=== PATIENT | female | born 1975 | race Caucasian/White ===

== ENCOUNTER 2018-04-09 01:19 | Emergency (ER) | payer OTHER, SELFPAY ==
[2018-04-09 01:23] VITALS: BP 139/96; PULSE 116; RESP 18; TEMP 36.8; O2SAT 97
--- NOTE | 2018-04-09 01:56 | W.ED.GENAD ---
Discharge Plan Disposition Patient Disposition: HOME Condition: Good Discharge Details Chief Complaint: DentalOral Clinical Impression: Dental infection Primary Care Provider: Villa Saavedra ED Provider: Robert Crouch Meds and New Rx's Prescriptions: New amoxicillin 500 mg Capsule 500 mg PO TID Qty: 20 RF: 0 Continue aspirin 81 MG tablet,delayed release (DR/EC) 81 mg PO DAILY Qty: 30 RF: 0 nitroglycerin [Nitrostat] 0.4 MG tablet, sublingual 0.4 mg Sublingual Q5 MIN PRN X3 PRNQty: 25 RF: 0 lisinopril [Prinivil] 10 MG tablet 10 mg PO DAILY Qty: 30 RF: 0 omeprazole magnesium [Prilosec OTC] 20 MG tablet,delayed release (DR/EC) 20 mg PO DAILY@0730 Qty: 30 RF: 0 quetiapine [Seroquel] 100 MG tablet 100 mg PO DAILY RF: 0 diazepam [Valium] 5 MG tablet 5 mg PO QID PRN (Reason: Muscle Spasm) Qty: 9 RF: 0 ibuprofen 600 MG tablet 600 mg PO QID PRN (Reason: Pain) Qty: 20 RF: 0 Discharge Instructions Instructions: Amoxicillin (By mouth), Dental Abscess (ED) Additional Instructions: Use ibuprofen or acetaminophen for pain. Take antibiotic as directed. You should follow-up with a dentist, please see referral sheet. Return to ED for fever, worsening pain swelling, difficulty breathing, inability to swallow. Medical Decision Making Patient with probable dental infection given the severity of her dental decay. There is no obvious abscess for drainage. She will be started on antibiotic and referred to dentist although she states she has no money to afford a dentist. She has ibuprofen at home to use for pain. Return to ED for fever, increasing pain swelling despite antibiotics, difficulty breathing, inability to swallow. HPI General Mode of arrival: ambulatory. Date/Time Provider Initiated Documentation: 04/09/18 01:48. Limitations to Documentation: no limitations. Information obtained by: patient. HPI Narrative: Patient presents with right lower jaw swelling and pain. Patient has very poor dentition and is prone to dental infections. Started to have increasing pain about 24 hours ago. Tonight started to notice swelling. Came in to get antibiotics. She denies having any fever. She denies difficulty breathing. She has no trouble swallowing. Related Data Home Medications Medication Instructions Recorded Confirmed quetiapine [Seroquel] 100 mg PO DAILY 07/31/16 04/09/18 aspirin 81 mg PO DAILY #30 tabec 04/28/17 04/09/18 lisinopril [Prinivil] 10 mg PO DAILY #30 tablet 04/28/17 04/09/18 nitroglycerin [Nitrostat] 0.4 mg SUBLINGUAL Q5 MIN PRN X3 04/28/17 04/09/18 PRN #25 tab omeprazole magnesium [Prilosec OTC] 20 mg PO DAILY@0730 #30 tabcr 04/28/17 04/09/18 diazepam [Valium] 5 mg PO QID PRN #9 tablet 01/12/18 04/09/18 ibuprofen 600 mg PO QID PRN #20 tablet 01/12/18 04/09/18 amoxicillin 500 mg PO TID #20 cap 04/09/18 Previous Rx's Medication Instructions Recorded aspirin 81 mg PO DAILY #30 tabec 04/28/17 lisinopril [Prinivil] 10 mg PO DAILY #30 tablet 04/28/17 nitroglycerin [Nitrostat] 0.4 mg SUBLINGUAL Q5 MIN PRN X3 04/28/17 PRN #25 tab omeprazole magnesium [Prilosec OTC] 20 mg PO DAILY@0730 #30 tabcr 04/28/17 diazepam [Valium] 5 mg PO QID PRN #9 tablet 01/12/18 ibuprofen 600 mg PO QID PRN #20 tablet 01/12/18 amoxicillin 500 mg PO TID #20 cap 04/09/18 Allergies Allergy/AdvReac Type Severity Reaction Status Date / Time amitriptyline [From Elavil] AdvReac Mild Unverified 04/09/18 01:23 tramadol AdvReac Mild Nausea Unverified 04/09/18 01:23 buspirone [From BuSpar] AdvReac Unverified 04/09/18 01:23 General Stated Complaint: DentalOral GERBER: 5 Review of Systems Constitutional Denies chills and Denies fever(s) ENT Reports dental pain, Denies neck mass, Denies neck pain, Denies sore throat and Denies throat swelling Cardiovascular Denies dyspnea Respiratory Denies dyspnea Musculoskeletal Denies neck pain Allergic/Immunologic Denies throat swelling [facility] Medical History HTN (hypertension) (Chronic) Hypercholesterolemia (Chronic) Social History Smoking/Tobacco Use Status: Current every day Surgical History Tubal ligation status (Inactive) Exam Const General: cooperative and no acute distress Orientation: alert and oriented x3 HENMT Head: normocephalic and atraumatic Face and sinus: no erythema, tenderness (along the right mandible area) and other (swelling along the right mandible area) Mouth: lip normal and tongue normal Teeth and gingiva: poor dentition and other (no gum/gingival abscess to drain; very poor dentition with multiple decayed/fracture teeth) Neck Neck: normal visual inspection, full ROM, no lymphadenopathy, trachea midline, supple and no anterior neck swelling Course Vital Signs Temperature 98.2 F 04/09/18 01:23 Pulse 116 H 04/09/18 01:23 Respiratory Rate 18 04/09/18 01:23 Blood Pressure 139/96 H 04/09/18 01:23 Pulse Oximetry 97 04/09/18 01:23 Temperature 98.2 F 04/09/18 01:23 Temperature Source Temporal Artery Scan 04/09/18 01:23 Pulse 116 H 04/09/18 01:23 Respiratory Rate 18 04/09/18 01:23 Respiratory Effort 04/09/18 01:23 Blood Pressure 139/96 H 04/09/18 01:23 Blood Pressure Position Sitting 04/09/18 01:23 Pulse Oximetry 97 04/09/18 01:23 Oxygen Delivery Method Room Air 04/09/18 01:23 Oxygen Flow Rate 0 04/09/18 01:23 Pain Level 6 04/09/18 01:23
[2018-04-09 02:04] VITALS: BP 139/96; PULSE 116; RESP 18; TEMP 36.8; O2SAT 97
[2018-04-09] MEDS: Amoxicillin 500 MG CAP PO (02:04)
--- NOTE | 2018-04-09 02:06 | ED.GENADUL_ITS ---
Discharge Plan Disposition Patient Disposition: HOME Condition: Good Discharge Details Chief Complaint: DentalOral Clinical Impression: Dental infection Primary Care Provider: [facility] Saavedra ED Provider: Robert Crouch Meds and New Rx's Prescriptions: New amoxicillin 500 mg Capsule 500 mg PO TID Qty: 20 RF: 0 Continue aspirin 81 MG tablet,delayed release (DR/EC) 81 mg PO DAILY Qty: 30 RF: 0 nitroglycerin [Nitrostat] 0.4 MG tablet, sublingual 0.4 mg Sublingual Q5 MIN PRN X3 PRNQty: 25 RF: 0 lisinopril [Prinivil] 10 MG tablet 10 mg PO DAILY Qty: 30 RF: 0 omeprazole magnesium [Prilosec OTC] 20 MG tablet,delayed release (DR/EC) 20 mg PO DAILY@0730 Qty: 30 RF: 0 quetiapine [Seroquel] 100 MG tablet 100 mg PO DAILY RF: 0 diazepam [Valium] 5 MG tablet 5 mg PO QID PRN (Reason: Muscle Spasm) Qty: 9 RF: 0 ibuprofen 600 MG tablet 600 mg PO QID PRN (Reason: Pain) Qty: 20 RF: 0 Discharge Instructions Instructions: Amoxicillin (By mouth), Dental Abscess (ED) Additional Instructions: Use ibuprofen or acetaminophen for pain. Take antibiotic as directed. You should follow-up with a dentist, please see referral sheet. Return to ED for fever, worsening pain swelling, difficulty breathing, inability to swallow. Medical Decision Making Patient with probable dental infection given the severity of her dental decay. There is no obvious abscess for drainage. She will be started on antibiotic and referred to dentist although she states she has no money to afford a dentist. She has ibuprofen at home to use for pain. Return to ED for fever, increasing pain swelling despite antibiotics, difficulty breathing, inability to swallow. HPI General Mode of arrival: ambulatory . Date/Time Provider Initiated Documentation: 04/09/18 01:48 . Limitations to Documentation: no limitations . Information obtained by: patient . HPI Narrative: Patient presents with right lower jaw swelling and pain. Patient has very poor dentition and is prone to dental infections. Started to have increasing pain about 24 hours ago. Tonight started to notice swelling. Came in to get antibiotics. She denies having any fever. She denies difficulty breathing. She has no trouble swallowing. Related Data Home Medications Medication Instructions Recorded Confirmed quetiapine [Seroquel] 100 mg PO DAILY 07/31/16 04/09/18 aspirin 81 mg PO DAILY #30 tabec 04/28/17 04/09/18 lisinopril [Prinivil] 10 mg PO DAILY #30 tablet 04/28/17 04/09/18 nitroglycerin [Nitrostat] 0.4 mg SUBLINGUAL Q5 MIN PRN X3 04/28/17 04/09/18 PRN #25 tab omeprazole magnesium [Prilosec OTC] 20 mg PO DAILY@0730 #30 tabcr 04/28/1704/09 diazepam [Valium] 5 mg PO QID PRN #9 tablet 01/12/18 04/09/18 ibuprofen 600 mg PO QID PRN #20 tablet 01/12/18 04/09/18 amoxicillin 500 mg PO TID #20 cap 04/09/18 Previous Rx's Medication Instructions Recorded aspirin 81 mg PO DAILY #30 tabec 04/28/17 lisinopril [Prinivil] 10 mg PO DAILY #30 tablet 04/28/17 nitroglycerin [Nitrostat] 0.4 mg SUBLINGUAL Q5 MIN PRN X3 04/28/17 PRN #25 tab omeprazole magnesium [Prilosec OTC] 20 mg PO DAILY@0730 #30 tabcr 04/28/17 diazepam [Valium] 5 mg PO QID PRN #9 tablet 01/12/18 ibuprofen 600 mg PO QID PRN #20 tablet 01/12/18 amoxicillin 500 mg PO TID #20 cap 04/09/18 Allergies Allergy/AdvReac Type Severity Reaction Status Date / Time amitriptyline [From Elavil] AdvReac Mild Unverified 04/09/18 01:23 tramadol AdvReac Mild Nausea Unverified 04/09/18 01:23 buspirone [From BuSpar] AdvReac Unverified 04/09/18 01:23 General Stated Complaint: DentalOral GERBER: 5 Review of Systems Constitutional Denies chills and Denies fever(s) ENT Reports dental pain, Denies neck mass, Denies neck pain, Denies sore throat and Denies throat swelling Cardiovascular Denies dyspnea Respiratory Denies dyspnea Musculoskeletal Denies neck pain Allergic/Immunologic Denies throat swelling [facility] Medical History HTN (hypertension) (Chronic) Hypercholesterolemia (Chronic) Social History Smoking/Tobacco Use Status: Current every day Surgical History Tubal ligation status (Inactive) Exam Const General: cooperative and no acute distress Orientation: alert and oriented x3 HENMT Head: normocephalic and atraumatic Face and sinus: no erythema, tenderness (along the right mandible area) and other (swelling along the right mandible area) Mouth: lip normal and tongue normal Teeth and gingiva: poor dentition and other (no gum/gingival abscess to drain; very poor dentition with multiple decayed/fracture teeth) Neck Neck: normal visual inspection, full ROM, no lymphadenopathy, trachea midline, supple and no anterior neck swelling Course Vital Signs Temperature 98.2 F 04/09/18 01:23 Pulse 116 H 04/09/18 01:23 Respiratory Rate 18 04/09/18 01:23 Blood Pressure 139/96 H 04/09/18 01:23 Pulse Oximetry 97 04/09/18 01:23 Temperature 98.2 F 04/09/18 01:23 Temperature Source Temporal Artery Scan 04/09/18 01:23 Pulse 116 H 04/09/18 01:23 Respiratory Rate 18 04/09/18 01:23 Respiratory Effort 04/09/18 01:23 Blood Pressure 139/96 H 04/09/18 01:23 Blood Pressure Position Sitting 04/09/18 01:23 Pulse Oximetry 97 04/09/18 01:23 Oxygen Delivery Method Room Air 04/09/18 01:23 Oxygen Flow Rate 0 04/09/18 01:23 Pain Level 6 04/09/18 01:23
== END 2018-04-09 02:08 | disposition home or self-care (01) ==
PROVIDERS: Emergency Provider Emergency Medicine; PCP Specialist/Technologist Athletic Trainer
DX: R68.84 Jaw pain (principal); K04.7 Periapical abscess without sinus; I10 Essential (primary) hypertension
CPT/HCPCS: 99283

== ENCOUNTER 2018-04-12 14:00 | Observation (INO) | payer OTHER, SELFPAY ==
[2018-04-12] VITALS (12 sets, daily range): BP systolic 102–140; BP diastolic 52–116; PULSE 71–105; RESP 15–22; TEMP 36.3–37.2; O2SAT 93–100
--- NOTE | 2018-04-12 14:16 | W.ED.GENAD ---
Discharge Plan Disposition Patient Disposition: [facility] INPATIENT Condition: Poor Discharge Details Chief Complaint: FlankPain Clinical Impression: Acute appendicitis Admit Date/Time: 04/12/18 16:47 Admit Provider: Earle Watson Attending Provider: Earle Watson Primary Care Provider: Villa Saavedra ED Provider: Kirsty Stuart Discharge Data Discharge Date/Time-TO BE ENTERED AT DEPARTURE: 04/12/18 19:34 Medical Decision Making Patient presents today with c/c of left sided back and abdominal pain. She described CVA tenderness on exam but none was elicited with testing. She has diffuse abdominal pain, worse in the LUQ and LLQ. No N/V. No change in bowel habits. Patient is s/p tubal ligation. She is currently menstrating. No change in urinary habits. No history of nephorlithiasis. Patient is clearly uncomfortable on exam, she is rocking back and forth in pain. Exam and history is most concerning for kidney stone. Will obtain labs and renal US. She has taken 1,000mg of Ibuprofen prior to arrival, will given IV morphine. Patient received 2mg of Morphine, reports this worked well for discomfort. No stones or hydronephrosis per Dr. Fuentes. AFter returning from US, patient reports pain is back up. Will given another 4mg of Morphine. WBC 17, neutrophil 15, gap 14.5. Patient has moderate blood in her urine, currently menstruating. Will obtain CT as patient continues to writhe in pain and is clutching left side. Contacted By radiologist regarding results of the CT. He advised patient's findings are significant for acute appendicitis lying in horizontal plane almost to midline. Advised that the appendix appears to be lying on the ureter. It is inflamed and distended the distal aspects. Incidentally noted stones in the gallbladder with no acute findings to suggest cholecystitis. Consulted with Dr. Watson. Patient will be started on 2g Ceftriaxone at his recommendation, he will come to evaluate. Dr. Duncan evaluated the patient. Will order maintenance fluids as well as inhaled nicotine. He plans to take patietn to OR for appendectomy tonight. He and I discussed plan with the patient who is in agreement. Pain managed here prior to patient going to the emergency department. She is remained n.p.o. since being HPI General Mode of arrival: ambulatory. Date/Time Provider Initiated Documentation: 04/12/18 14:03. Limitations to Documentation: no limitations. Information obtained by: patient. History of Present Illness 43 year old F presents to the emergency department with the chief complaint of left flank pain, described as severe, with intensity rated at 8. Quality is described as stabbing, and is localized to the back (left flank). Patient abdomen (radiates anteriorly and into the left side of groin). Patient started experiencing this hour(s) (10) and it has been constant. No relieving factors improve symptom(s), No exacerbating factors reported . Patient notes loss of appetite; denies chest pain, cough, diaphoresis, fever/chills, nausea/vomiting, rash and shortness of breath. Patient did receive the following treatments prior to arrival, NSAID (1,000mg Ibuprofen) Related Data Home Medications Medication Instructions Recorded Confirmed quetiapine [Seroquel] 100 mg PO DAILY 07/31/16 04/12/18 aspirin 81 mg PO DAILY #30 tabec 04/28/17 04/12/18 lisinopril [Prinivil] 10 mg PO DAILY #30 tablet 04/28/17 04/12/18 nitroglycerin [Nitrostat] 0.4 mg SUBLINGUAL Q5 MIN PRN X3 04/28/17 04/12/18 PRN #25 tab omeprazole magnesium [Prilosec OTC] 20 mg PO DAILY@0730 #30 tabcr 04/28/17 04/12/18 ibuprofen 600 mg PO QID PRN #20 tablet 01/12/18 04/12/18 amoxicillin 500 mg PO TID #20 cap 04/09/18 04/12/18 Previous Rx's Medication Instructions Recorded aspirin 81 mg PO DAILY #30 tabec 04/28/17 lisinopril [Prinivil] 10 mg PO DAILY #30 tablet 04/28/17 nitroglycerin [Nitrostat] 0.4 mg SUBLINGUAL Q5 MIN PRN X3 04/28/17 PRN #25 tab omeprazole magnesium [Prilosec OTC] 20 mg PO DAILY@0730 #30 tabcr 04/28/17 ibuprofen 600 mg PO QID PRN #20 tablet 01/12/18 amoxicillin 500 mg PO TID #20 cap 04/09/18 Allergies Allergy/AdvReac Type Severity Reaction Status Date / Time amitriptyline [From Elavil] AdvReac Mild Unverified 04/12/18 14:10 tramadol AdvReac Mild Nausea Unverified 04/12/18 14:10 buspirone [From BuSpar] AdvReac Unverified 04/12/18 14:10 General Stated Complaint: FlankPain GERBER: 3 Review of Systems Constitutional Reports as per HPI, Denies chills, Denies fatigue, Denies fever(s) and Reports poor appetite Cardiovascular Denies chest pain, Denies chest pain with activity, Denies dyspnea and Denies dyspnea on exertion Respiratory Denies cough, Denies dyspnea and Denies dyspnea on exertion Gastrointestinal Reports as per HPI, Reports abdominal pain, Denies melena, Denies bloating, Denies change in bowel habits, Denies change in stool character, Denies constipation, Reports cramping, Denies diarrhea, Denies nausea and Denies vomiting Genitourinary Reports as per HPI and Denies dysuria Musculoskeletal Reports back pain (left sided flank pain) Integumentary/Breasts Denies rash, Denies skin pain, Denies sores and Denies wounds Endocrine Denies fatigue PFSH Medical History Insomnia (Chronic) HTN (hypertension) (Chronic) Hypercholesterolemia (Chronic) Social History marital status: Smoking/Tobacco Use Status: Current every day tobacco type: cigarettes alcohol intake: never substance use type: does not use Surgical History Tubal ligation status (Inactive) Exam Const General: cooperative, healthy appearing, uncomfortable (patient appears uncomfortable, having difficulty holding still. Rocking and writhing ) and well developed Nutritional Appearance: well nourished and overweight Orientation: alert and awake Eyes General: appearance normal, both eyes and all related structures Resp Effort & Inspection: normal respiratory effort, able to speak in complete sentences and no respiratory distress Auscultation: clear to auscultation bilaterally Cardio Rate: regular rate Rhythm: regular rhythm Heart Sounds: S1 normal and S2 normal GI Inspection: normal to inspection Palpation: soft, not firm, no guarding, no hernias, no masses and nontender (diffuse discomfort, worse in the LUQ and LLQ) Auscultation: normal bowel sounds Back/Spine/Pelvis Back: no CVA tenderness Skin General skin exam: no rashes or lesions noted Neuro General: alert and awake Cognition: normal cognition Speech: speech normal Gait: normal gait Psych Appearance: grossly normal and well kempt Mental Status: mental status grossly normal Speech and Movement: speech and movement normal Course Vital Signs Temperature 36.8 C 04/12/18 14:06 Pulse 101 H 04/12/18 14:06 Respiratory Rate 22 04/12/18 14:06 Blood Pressure 140/116 H 04/12/18 14:06 Pulse Oximetry 99 04/12/18 14:06 Temperature 36.8 C 04/12/18 14:06 Temperature Source Temporal Artery Scan 04/12/18 14:06 Pulse 101 H 04/12/18 14:06 Respiratory Rate 22 04/12/18 14:06 Respiratory Effort Non-Labored 04/12/18 14:09 Blood Pressure 140/116 H 04/12/18 14:06 Blood Pressure Position Sitting 04/12/18 14:06 Pulse Oximetry 99 04/12/18 14:06 Oxygen Delivery Method Room Air 04/12/18 14:06 Oxygen Flow Rate 0 04/12/18 14:06 Pain Level 8 04/12/18 14:06 Comment 04/12/18 14:06
--- NOTE | 2018-04-12 14:20 | ED.GENADUL_ITS ---
Discharge Plan Disposition Patient Disposition: [facility] INPATIENT Condition: Poor Discharge Details Chief Complaint: FlankPain Clinical Impression: Acute appendicitis Admit Date/Time: 04/12/18 16:47 Admit Provider: Earle Watson Attending Provider: Earle Watson Primary Care Provider: Villa Saavedra ED Provider: Kirsty Stuart Discharge Data Discharge Date/Time-TO BE ENTERED AT DEPARTURE: 04/12/18 19:34 Medical Decision Making Patient presents today with c/c of left sided back and abdominal pain. She described CVA tenderness on exam but none was elicited with testing. She has diffuse abdominal pain, worse in the LUQ and LLQ. No N/V. No change in bowel habits. Patient is s/p tubal ligation. She is currently menstrating. No change in urinary habits. No history of nephorlithiasis. Patient is clearly uncomfortable on exam, she is rocking back and forth in pain. Exam and history is most concerning for kidney stone. Will obtain labs and renal US. She has taken 1,000mg of Ibuprofen prior to arrival, will given IV morphine. Patient received 2mg of Morphine, reports this worked well for discomfort. No stones or hydronephrosis per Dr. Fuentes. AFter returning from US, patient reports pain is back up. Will given another 4mg of Morphine. WBC 17, neutrophil 15, gap 14.5. Patient has moderate blood in her urine, currently menstruating. Will obtain CT as patient continues to writhe in pain and is clutching left side. Contacted By radiologist regarding results of the CT. He advised patient's findings are significant for acute appendicitis lying in horizontal plane almost to midline. Advised that the appendix appears to be lying on the ureter. It is inflamed and distended the distal aspects. Incidentally noted stones in the gallbladder with no acute findings to suggest cholecystitis. Consulted with Dr. Watson. Patient will be started on 2g Ceftriaxone at his recommendation, he will come to evaluate. Dr. Duncan evaluated the patient. Will order maintenance fluids as well as inhaled nicotine. He plans to take patietn to OR for appendectomy tonight. He and I discussed plan with the patient who is in agreement. Pain managed here prior to patient going to the emergency department. She is remained n.p.o. since being HPI General Mode of arrival: ambulatory . Date/Time Provider Initiated Documentation: 04/12/18 14:03 . Limitations to Documentation: no limitations . Information obtained by: patient . History of Present Illness 43 year old F presents to the emergency department with the chief complaint of left flank pain, described as severe, with intensity rated at 8. Quality is described as stabbing, and is localized to the back (left flank). Patient abdomen (radiates anteriorly and into the left side of groin). Patient started experiencing this hour(s) (10) and it has been constant. No relieving factors improve symptom(s), No exacerbating factors reported . Patient notes loss of appetite; denies chest pain, cough, diaphoresis, fever/ chills, nausea/vomiting, rash and shortness of breath. Patient did receive the following treatments prior to arrival, NSAID (1,000mg Ibuprofen) Related Data Home Medications Medication Instructions Recorded Confirmed quetiapine [Seroquel] 100 mg PO DAILY 07/31/16 04/12/18 aspirin 81 mg PO DAILY #30 tabec 04/28/17 04/12/18 lisinopril [Prinivil] 10 mg PO DAILY #30 tablet 04/28/17 04/12/18 nitroglycerin [Nitrostat] 0.4 mg SUBLINGUAL Q5 MIN PRN X3 04/28/17 04/12/18 PRN #25 tab omeprazole magnesium [Prilosec OTC] 20 mg PO DAILY@0730 #30 tabcr 04/28/1704/12 ibuprofen 600 mg PO QID PRN #20 tablet 01/12/18 04/12/18 amoxicillin 500 mg PO TID #20 cap 04/09/18 04/12/18 Previous Rx's Medication Instructions Recorded aspirin 81 mg PO DAILY #30 tabec 04/28/17 lisinopril [Prinivil] 10 mg PO DAILY #30 tablet 04/28/17 nitroglycerin [Nitrostat] 0.4 mg SUBLINGUAL Q5 MIN PRN X3 04/28/17 PRN #25 tab omeprazole magnesium [Prilosec OTC] 20 mg PO DAILY@0730 #30 tabcr 04/28/17 ibuprofen 600 mg PO QID PRN #20 tablet 01/12/18 amoxicillin 500 mg PO TID #20 cap 04/09/18 Allergies Allergy/AdvReac Type Severity Reaction Status Date / Time amitriptyline [From Elavil] AdvReac Mild Unverified 04/12/18 14:10 tramadol AdvReac Mild Nausea Unverified 04/12/18 14:10 buspirone [From BuSpar] AdvReac Unverified 04/12/18 14:10 General Stated Complaint: FlankPain GERBER: 3 Review of Systems Constitutional Reports as per HPI, Denies chills, Denies fatigue, Denies fever(s) and Reports poor appetite Cardiovascular Denies chest pain, Denies chest pain with activity, Denies dyspnea and Denies dyspnea on exertion Respiratory Denies cough, Denies dyspnea and Denies dyspnea on exertion Gastrointestinal Reports as per HPI, Reports abdominal pain, Denies melena, Denies bloating, Denies change in bowel habits, Denies change in stool character, Denies constipation, Reports cramping, Denies diarrhea, Denies nausea and Denies vomiting Genitourinary Reports as per HPI and Denies dysuria Musculoskeletal Reports back pain (left sided flank pain) Integumentary/Breasts Denies rash, Denies skin pain, Denies sores and Denies wounds Endocrine Denies fatigue PFSH Medical History Insomnia (Chronic) HTN (hypertension) (Chronic) Hypercholesterolemia (Chronic) Social History marital status: Smoking/Tobacco Use Status: Current every day tobacco type: cigarettes alcohol intake: never substance use type: does not use Surgical History Tubal ligation status (Inactive) Exam Const General: cooperative, healthy appearing, uncomfortable (patient appears uncomfortable, having difficulty holding still. Rocking and writhing ) and well developed Nutritional Appearance: well nourished and overweight Orientation: alert and awake Eyes General: appearance normal, both eyes and all related structures Resp Effort & Inspection: normal respiratory effort, able to speak in complete sentences and no respiratory distress Auscultation: clear to auscultation bilaterally Cardio Rate: regular rate Rhythm: regular rhythm Heart Sounds: S1 normal and S2 normal GI Inspection: normal to inspection Palpation: soft, not firm, no guarding, no hernias, no masses and nontender ( diffuse discomfort, worse in the LUQ and LLQ) Auscultation: normal bowel sounds Back/Spine/Pelvis Back: no CVA tenderness Skin General skin exam: no rashes or lesions noted Neuro General: alert and awake Cognition: normal cognition Speech: speech normal Gait: normal gait Psych Appearance: grossly normal and well kempt Mental Status: mental status grossly normal Speech and Movement: speech and movement normal Course Vital Signs Temperature 36.8 C 04/12/18 14:06 Pulse 101 H 04/12/18 14:06 Respiratory Rate 22 04/12/18 14:06 Blood Pressure 140/116 H 04/12/18 14:06 Pulse Oximetry 99 04/12/18 14:06 Temperature 36.8 C 04/12/18 14:06 Temperature Source Temporal Artery Scan 04/12/18 14:06 Pulse 101 H 04/12/18 14:06 Respiratory Rate 22 04/12/18 14:06 Respiratory Effort Non-Labored 04/12/18 14:09 Blood Pressure 140/116 H 04/12/18 14:06 Blood Pressure Position Sitting 04/12/18 14:06 Pulse Oximetry 99 04/12/18 14:06 Oxygen Delivery Method Room Air 04/12/18 14:06 Oxygen Flow Rate 0 04/12/18 14:06 Pain Level 8 04/12/18 14:06 Comment 04/12/18 14:06
[2018-04-12] MEDS: Normal Saline 1,000 ML 1000 ML IV (14:24)
[2018-04-12] MEDS: MORPHine 10 MG/ML VIAL 2 MG IVP ×2 (14:24→16:29)
[2018-04-12 14:46] LABS: Bilirubin Negative (Negative); Blood Moderate (Negative); Clarity Sl Cloudy; Glucose Negative (Negative); Ketones 15 mg/dL (Negative); Leukocyte Esterase Negative (Negative); Nitrite Negative (Negative); Specific Gravity >= 1.030 (1.005-1.025); Urobilinogen 0.2 EU/dL (Up TO 0.2); pH 5.5 (5-8)
--- NOTE | 2018-04-12 14:48 | DI.US_ITS ---
SYMPTOMS/DIAGNOSIS: LEFT FLANK PAIN RENAL ULTRASOUND: Routine examination was performed. The right kidney measures 9.7 cm long. The left kidney measures 11.1 cm long. Normal renal blood flow is seen. No hydronephrosis or solid renal mass is present. No shadowing or echogenic foci are present. The patient emptied their bladder just prior to the examination. The bladder was not evaluated on this exam. IMPRESSION: No evidence of hydronephrosis.
[2018-04-12 14:51] LABS: ALT 19 U/L (12-78); AST 11 U/L (15-37); Albumin 3.9 g/dL (3.4-5.0); Alkaline Phosphatase 90 U/L (46-116); Anion Gap 14.5 mmol/L (3-11); BUN 9 mg/dL (7-18); Bilirubin, Total 0.4 mg/dL (0.2-1.0); CO2 20.5 mmol/L (21.0-32.0); CREATININE 0.77 mg/dL (0.55-1.02); Chloride 100 mmol/L (98-107); Glucose 101 mg/dL (70-100); Lipase 126 U/L (73-393); Sodium 135 mmol/L (136-145); Total Protein 7.7 g/dL (6.4-8.2)
[2018-04-12 14:52] LABS: Abs Immature Grans 0.04 k/cumm (0.0-0.09); Absolute Basophil Count 0.04 k/cumm (0.0-0.2); Absolute Eosinophil Count 0.14 k/cumm (0.0-0.7); Absolute Lymphocyte Count 1.74 k/cumm (1.2-3.4); Absolute Monocyte Count 0.78 k/cumm (0.11-0.7); Absolute Neutrophil Count 15.04 k/cumm (1.2-6.7); Basophils % 0.2; Eosinophils % 0.8; HCT 39.6 % (36.0-46.0); Immature Grans % 0.2; Lymphocytes % 9.8; Mean Corp. HGB Concentration 35.4 g/dL (32.0-36.0); Mean Corpuscular Hemoglobin 29.1 pg (27.0-33.0); Mean Corpuscular Volume 82.3 fL (80-95); Mean Platelet Volume 10.4 fL (8.0-11.0); Monocytes % 4.4; Neutrophils % 84.6; Platelet Count 301 x1000/uL (130-400); RBC 4.81 m/cumm (4.00-5.20); RBC Distribution Width 12.9 % (11.7-14.6); White Blood Cell Count 17.78 k/cumm (4.4-10.8)
[2018-04-12 14:53] LABS: RBC 0-2 (0-2); WBC 0-2 HPF (0-5)
[2018-04-12 14:54] LABS: Bacteria Rare HPF (Negative); C & S Indicated? No; Casts Negative LPF (Negative); Crystals Few Amorphous HPF (Negative); Epithelial Cells Few HPF (Negative); Mucus Heavy (Negative)
--- NOTE | 2018-04-12 15:18 | DI.CT_ITS ---
SYMPTOMS/DIAGNOSIS: SEVERE PAIN LUQ, LT FLANK PAIN CT SCAN OF THE ABDOMEN AND PELVIS: Routine examination was performed. There are no priors for comparison. The distal two-thirds of the appendix is distended and lies in a horizontal plane toward the midline. The appendix measures 1.4 cm in diameter. Appendiceal inflammatory changes are present. The findings are consistent with an acute appendicitis. The visualized lung bases are clear. The liver, spleen, pancreas and adrenal glands are unremarkable. There are gallstones present. No biliary ductal dilatation is present. The portal and superior mesenteric veins are patent. The kidneys show normal and symmetric enhancement. No evidence of a solid renal mass, calculus or obstruction. The urinary bladder is intact. The reproductive organs are unremarkable. No abdominal or pelvic adenopathy, ascites or free air is seen. No findings to suggest an abscess are appreciated. The bones are intact. IMPRESSION: 1. Findings consistent with an acute appendicitis. No abscess or free air. 2. Cholelithiasis. No biliary ductal dilatation. 3. No evidence of nephrolithiasis or hydronephrosis. The findings were discussed with Kirsty Stuart of the emergency department on the date of the examination.
[2018-04-12] MEDS: Omnipaque 350 MG/ML 100 ML BTL IV (15:54)
--- NOTE | 2018-04-12 16:47 | HPE_ITS ---
Date of service: 04/12/18 Time of Service: 16:31 Assessment and Plan (1) Acute appendicitis with generalized peritonitis: Current visit: Yes Status: Acute Reviewed clinical and diagnostic findings with Mrs. Davis. Recommended appendectomy to her, I reviewed the procedure with her, and discussed the risks of the procedure. All her questions were answered to her satisfaction. No promises were made or guarantees given. Consent was obtained to proceed with laparoscopic appendectomy possible open appendectomy. History of Present Illness Chief Complaint: Left-sided abdominal pain Narrative: 43-year-old woman presenting to the emergency room less than 24 hours of left-sided abdominal pain progressively worsening over the day. She has had associated nausea and, and anorexia, but denies any vomiting. She denies any sick contacts, and has tried no new foods or eating out it recently. Pain is nonradiating. CT of the abdomen pelvis is subsequently shown acute appendicitis. Surgery was consulted. Review of Systems Review of Systems All systems reviewed & are unremarkable except as noted in HPI and below Constitutional Reports anorexia, Denies chills, Reports difficulty sleeping, Denies fever(s), Reports malaise and Reports poor appetite Gastrointestinal Reports abdominal pain, Denies bloating, Denies diarrhea, Reports nausea and Denies vomiting Genitourinary Denies urinary frequency, Denies dysuria and Denies urinary urgency [facility] Medical History Insomnia (Chronic) HTN (hypertension) (Chronic) Hypercholesterolemia (Chronic) Social History marital status: Smoking/Tobacco Use Status: Current every day tobacco type: cigarettes alcohol intake: never substance use type: does not use Surgical History Tubal ligation status (Inactive) Meds Home Medications Medication Instructions Recorded Confirmed Type quetiapine [Seroquel] 100 mg PO DAILY 07/31/16 04/09/18 History aspirin 81 mg PO DAILY #30 tabec 04/28/17 04/09/18 Rx lisinopril [Prinivil] 10 mg PO DAILY #30 tablet 04/28/17 04/09/18 Rx nitroglycerin [Nitrostat] 0.4 mg SUBLINGUAL Q5 MIN PRN X3 04/28/17 04/09/18 Rx PRN #25 tab omeprazole magnesium [Prilosec OTC] 20 mg PO DAILY@0730 #30 tabcr 04/28/1704/09 Rx ibuprofen 600 mg PO QID PRN #20 tablet 01/12/18 04/09/18 Rx amoxicillin 500 mg PO TID #20 cap 04/09/18 Rx Allergies Allergy/AdvReac Type Severity Reaction Status Date / Time amitriptyline [From Elavil] AdvReac Mild Unverified 04/12/18 14:10 tramadol AdvReac Mild Nausea Unverified 04/12/18 14:10 buspirone [From BuSpar] AdvReac Unverified 04/12/18 14:10 Exam Const General: cooperative, in distress mild and disheveled Nutritional Appearance: obese Orientation: alert, awake and oriented x3 HENMT Head: normal to inspection, normocephalic and atraumatic Ears: hearing grossly normal bilaterally Face and sinus: normal facial exam Teeth and gingiva: poor dentition Eyes General: appearance normal, both eyes and all related structures Sclera: sclerae normal Pupils: PERRL EOM: EOM intact bilaterally Neck Neck: normal visual inspection, full ROM, trachea midline and supple Resp Effort & Inspection: normal respiratory effort, no audible wheezes and not labored Cardio Jugular venous pressure: no JVD Rate: regular rate Rhythm: regular rhythm GI Inspection: non-distended and large pannus Palpation: soft, guarding and tender in the epigastrum, in the RLQ, at McBurney' s point (positive) and with rebound tenderness (positive) Skin General skin exam: no rashes or lesions noted and turgor normal Lesions: no lesions Rashes: no rashes Hair: general thinning Neuro General: moves all extremities, no focal motor deficits and CN's II-XI intact bilaterally Extrem General: normal capillary refill and no clubbing, cyanosis or edema Psych Appearance: grossly normal and disheveled Mental Status: mental status grossly normal Attitude: cooperative Thought Process: normal Judgment: judgment good Results Imaging Imaging Studies: CT SCAN OF THE ABDOMEN AND PELVIS: Routine examination was performed. There are no priors for comparison. The distal two-thirds of the appendix is distended and lies in a horizontal plane toward the midline. The appendix measures 1.4 cm in diameter. Appendiceal inflammatory changes are present. The findings are consistent with an acute appendicitis. The visualized lung bases are clear. The liver, spleen, pancreas and adrenal glands are unremarkable. There are gallstones present. No biliary ductal dilatation is present. The portal and superior mesenteric veins are patent. The kidneys show normal and symmetric enhancement. No evidence of a solid renal mass, calculus or obstruction. The urinary bladder is intact. The reproductive organs are unremarkable. No abdominal or pelvic adenopathy, ascites or free air is seen. No findings to suggest an abscess are appreciated. The bones are intact. IMPRESSION: 1. Findings consistent with an acute appendicitis. No abscess or free air. 2. Cholelithiasis. No biliary ductal dilatation. 3. No evidence of nephrolithiasis or hydronephrosis. Labs : 04/12/18 14:20 04/12/18 14:20 Laboratory Results - last 24 hr 04/12/18 04/12/18 04/12/18 14:20 14:20 14:30 WBC 17.78 H RBC 4.81 Hgb 14.0 Hct 39.6 MCV 82.3 MCH 29.1 MCHC 35.4 RDW 12.9 Plt Count 301 MPV 10.4 Immature Gran % 0.2 Neutrophils % 84.6 Lymphocytes % 9.8 Monocytes % 4.4 Eosinophils % 0.8 Basophils % 0.2 Absolute Neutrophils 15.04 H Absolute Lymphocytes 1.74 Absolute Monocytes 0.78 H Absolute Eosinophils 0.14 Absolute Basophils 0.04 Sodium 135 L Potassium 4.0 Chloride 100 Carbon Dioxide 20.5 L Anion Gap 14.5 H BUN 9 Creatinine 0.77 Estimated GFR/1.73 m2 >= 60.00 Glucose 101 H Calcium 9.0 Total Bilirubin 0.4 AST 11 L ALT 19 Alkaline Phosphatase 90 Total Protein 7.7 Albumin 3.9 Lipase 126 Urine Color Yellow Urine Clarity Sl cloudy Urine pH 5.5 Ur Specific [place] >= 1.030 H Urine Protein Trace H Urine Ketones 15 H Urine Blood Moderate H Urine Nitrite Negative Urine Bilirubin Negative Urine Urobilinogen 0.2 Ur Leukocyte Esterase Negative Urine RBC 0-2 Urine WBC 0-2 Ur Epithelial Cells Few Urine Crystals Few amorphous Urine Bacteria Rare Urine Casts Negative Urine Mucus Heavy Urine Other Ur Culture Indicated? No Urine Glucose Negative
[2018-04-12] MEDS: Lactated Ringers 1,000 ML 200 ML IV ×2 (16:52→21:02)
[2018-04-12] MEDS: Albuterol/Ipratropium 3 ML UPD VIAL UPD (18:29)
--- NOTE | 2018-04-12 20:35 | APP_PTH ---
PATIENT: REYNA SHAFER LOC: U#:[id number] AGE/SX: 43/F ROOM: RE04/12/[address]: Earle Watson DO : 1975 BED: A DIS: 04/13/2018 SPEC #: [id number] RECD: 04/13/18 12:37 STATUS: SOUT REQ #: [id number] HUSAM: 04/12/18 20:[address]: Earle Watson DEPT: Surgical Specimen RECD BY: Geraldine Gentile ENTERED: 04/13/18 12:37 SP TYPE: Appendix OTHR DR: Villa Saavedra Tissues: 1 - APPENDIX NOT INCIDENTAL Procedures: GROSS AND MICRO LEVEL 3 Comments: [id number]
--- NOTE | 2018-04-12 21:03 | W.PM.OP ---
Date of service: 04/12/18 Time of Service: 21:04 Operative Note DATE OF PROCEDURE: 04/12/18 PRE-OP DIAGNOSIS: Acute appendicitis with peritonitis POST-OP DIAGNOSIS: same PROCEDURE: Laparoscopic appendectomy SURGEON: Earle Watson FLOOR LAYER HELPER: Anuja Baker ANESTHESIA: GETA (Mary Garcia CRNA ASA 2 Mallampati Score II) ESTIMATED BLOOD LOSS: 5 PATHOLOGY: other (Appendix) COMPLICATIONS: None Patient was transported to: PACU Patient's condition: stable Indications: 43-year-old woman presenting to the emergency room with less than 24 hours of acute onset left-sided abdominal pain. Subsequent workup demonstrated acute appendicitis surgery was consulted and it was recommended she go surgery. The procedure was reviewed with her, and all the risks discussed. Consent was obtained to proceed with laparoscopic appendectomy possible open appendectomy. Findings: The appendix is identified in the right lower quadrant was noted to be grossly distended in the distal two thirds there is no evidence of perforation. It was subsequently removed laparoscopically Procedure Description: The patient was brought to the preanesthesia staging area. Identification confirmed, consent signed, then brought to the operating room. Positioned on the operating table supine with all bony prominences padded. An appropriate time out was taken reviewing the patient's: identification, procedure, allergies, medications, history, special needs, and fire hazard. Antibiotics 2 g ceftriaxone were given prior to the procedure start, and sequential compression devices were placed. An endotracheal tube was placed by the ANESTHESIOLOGY FACULTY, and sedation was titrated for affect. Once adequate sedation was achieved, a cleveland catheter was inserted into the bladder, and the abdomen was prepped with chloraprep and blocked draped in the standard sterile fashion. I started the procedure by making a 4 mm linear transverse incision above the umbilicus, blunt dissection was carried down to the linea alba which was grasped by a Chuckie clamp. A veress needle was then introduced into the abdomen, and the position checked with a saline drop test. A 5mm trocar was then inserted under directed visualization. The area under the veress and trocar insertion was inspected for injuries, and there were no apparent injuries seen. A second 5 mm trocar was placed in the LLQ at the level of the ASIS, and midclavicular line, with a 12 mm trocar placed two centimeters above the pubic symphysis in the midline. The patient was placed in trendelenberg with a left slant to help expose the cecum and appendix.. The cecum was then manipulated to expose the base of the appendix . A window was created in the mesoappendix at the base of the appendix. Using a harmonic scalpel the mesoappendix was divided starting distal to the window working proximal. Once the mesoappendix was divided to free up the appendix. The appendix was from the cecum using an EndoGI stapler. Once divided the appendix was placed into an endocatch specimen bag. It was then removed from the abdomen and passed off for pathology. The abdomen was then irrigated with saline and desufflated. The trocars were removed under direct visualization. The 12 mm trocar fascia was closed using 0 vicryl suture with a figure of eight fascial suture.All skin incision were closed with 4-0 vicryl suture, and local was infiltrated around all incisions. All counts were reported as correct times two. There were no complications during the procedure. The patient was extubated in the OR and brought to the PACU in good condition.
--- NOTE | 2018-04-12 21:12 | ROE_ITS ---
Date of service: 04/12/18 Time of Service: 21:04 Operative Note DATE OF PROCEDURE: 04/12/18 PRE-OP DIAGNOSIS: Acute appendicitis with peritonitis POST-OP DIAGNOSIS: same PROCEDURE: Laparoscopic appendectomy SURGEON: Earle Watson UNDERWEAR WELTER: Anuja Baker ANESTHESIA: GETA (Mary Garcia CRNA ASA 2 Mallampati Score II) ESTIMATED BLOOD LOSS: 5 PATHOLOGY: other (Appendix) COMPLICATIONS: None Patient was transported to: PACU Patient's condition: stable Indications: 43-year-old woman presenting to the emergency room with less than 24 hours of acute onset left-sided abdominal pain. Subsequent workup demonstrated acute appendicitis surgery was consulted and it was recommended she go surgery. The procedure was reviewed with her, and all the risks discussed. Consent was obtained to proceed with laparoscopic appendectomy possible open appendectomy. Findings: The appendix is identified in the right lower quadrant was noted to be grossly distended in the distal two thirds there is no evidence of perforation. It was subsequently removed laparoscopically Procedure Description: The patient was brought to the preanesthesia staging area. Identification confirmed, consent signed, then brought to the operating room. Positioned on the operating table supine with all bony prominences padded. An appropriate time out was taken reviewing the patient's: identification, procedure, allergies , medications, history, special needs, and fire hazard. Antibiotics 2 g ceftriaxone were given prior to the procedure start, and sequential compression devices were placed. An endotracheal tube was placed by the LIEN SEARCHER, and sedation was titrated for affect. Once adequate sedation was achieved, a cleveland catheter was inserted into the bladder, and the abdomen was prepped with chloraprep and blocked draped in the standard sterile fashion. I started the procedure by making a 4 mm linear transverse incision above the umbilicus, blunt dissection was carried down to the linea alba which was grasped by a Chuckie clamp. A veress needle was then introduced into the abdomen , and the position checked with a saline drop test. A 5mm trocar was then inserted under directed visualization. The area under the veress and trocar insertion was inspected for injuries, and there were no apparent injuries seen. A second 5 mm trocar was placed in the LLQ at the level of the ASIS, and midclavicular line, with a 12 mm trocar placed two centimeters above the pubic symphysis in the midline. The patient was placed in trendelenberg with a left slant to help expose the cecum and appendix.. The cecum was then manipulated to expose the base of the appendix . A window was created in the mesoappendix at the base of the appendix. Using a harmonic scalpel the mesoappendix was divided starting distal to the window working proximal. Once the mesoappendix was divided to free up the appendix. The appendix was from the cecum using an EndoGI stapler. Once divided the appendix was placed into an endocatch specimen bag. It was then removed from the abdomen and passed off for pathology. The abdomen was then irrigated with saline and desufflated. The trocars were removed under direct visualization. The 12 mm trocar fascia was closed using 0 vicryl suture with a figure of eight fascial suture.All skin incision were closed with 4-0 vicryl suture, and local was infiltrated around all incisions. All counts were reported as correct times two. There were no complications during the procedure. The patient was extubated in the OR and brought to the PACU in good condition.
[2018-04-12] MEDS: Lactated Ringers 1,000 ML 125 ML IV (22:19)
[2018-04-13] MEDS: Pantoprazole 40 MG VIAL IVP (00:07)
[2018-04-13] MEDS: Enoxaparin 40 MG/0.4 ML SYR SC (00:07)
[2018-04-13] MEDS: Ketorolac 15 MG/ML VIAL IVP ×2 (00:08→03:32)
[2018-04-13] MEDS: Normal Saline Flush 10 ML SYR IVP ×2 (00:10→03:35)
[2018-04-13] MEDS: QUEtiapine 100 MG TAB PO (00:25)
[2018-04-13] MEDS: ACETAMINOPHEN 1,000 MG/100 ML BTL 400 MG IV (00:52)
[2018-04-13 01:24] VITALS: BP 118/78; PULSE 85; RESP 18; TEMP 36.6; O2SAT 97
[2018-04-13 04:57] VITALS: BP 112/53; PULSE 85; RESP 18; TEMP 36.8; O2SAT 94
[2018-04-13] MEDS: Lactated Ringers 1,000 ML 125 ML IV (06:08)
[2018-04-13 06:55] LABS: Abs Immature Grans 0.02 k/cumm (0.0-0.09); Absolute Lymphocyte Count 0.73 k/cumm (1.2-3.4); Anion Gap 9.2 mmol/L (3-11); BUN 8 mg/dL (7-18); CO2 24.8 mmol/L (21.0-32.0); CREATININE 0.69 mg/dL (0.55-1.02); Calcium 7.9 mg/dL (8.5-10.1); Chloride 103 mmol/L (98-107); Glucose 124 mg/dL (70-100); HGB 11.3 g/dL (12.0-15.5); Immature Grans % 0.2; Lymphocytes % 5.8; Magnesium 1.9 mg/dL (1.8-2.4); Mean Corp. HGB Concentration 34.2 g/dL (32.0-36.0); Mean Corpuscular Volume 84.8 fL (80-95); Mean Platelet Volume 10.4 fL (8.0-11.0); Platelet Count 200 x1000/uL (130-400); Potassium 4.1 mmol/L (3.5-5.1); RBC 3.89 m/cumm (4.00-5.20); RBC Distribution Width 12.7 % (11.7-14.6); Sodium 137 mmol/L (136-145); White Blood Cell Count 12.52 k/cumm (4.4-10.8)
[2018-04-13 06:58] LABS: Absolute Monocyte Count 0.38 k/cumm (0.11-0.7); Absolute Neutrophil Count 11.39 k/cumm (1.2-6.7)
[2018-04-13 07:20] VITALS: BP 108/68; PULSE 87; RESP 18; TEMP 36.9; O2SAT 99
--- NOTE | 2018-04-13 07:24 | W.PM.PROGNOT ---
Assessment and Plan (1) Acute appendicitis with generalized peritonitis: Current visit: Yes Status: Acute POD #1 s/p Lap. Appendectomy P\\ 1. Diet: advance diet to regular 2. Pain: Switch pain medications to oral 3. Activity: ambulate 4. Disposition: Home later today if tolerating a diet Subjective Interval history since last seen: Doing well. No complaints. Is hungry and wants a regular diet. Has been tolerating water. Passing flatus. Has been up to the bathroom Exam Const General: comfortable Resp Effort & Inspection: normal respiratory effort Auscultation: wheezes inspiratory wheezes and upper bilaterally Cardio Rate: regular rate Rhythm: regular rhythm Heart Sounds: no gallops, no murmurs and no rubs GI Inspection: incision (c/d/i) Auscultation: normal bowel sounds Objective Objective Clinical Data: Abnormal lab results 04/12/18 04/12/18 04/12/18 Range/Units 14:20 14:20 14:30 WBC 17.78 H (4.4-10.8) k/cumm RBC (4.00-5.20) m/cumm Hgb (12.0-15.5) g/dL Hct (36.0-46.0) % Absolute Neutrophils 15.04 H (1.2-6.7) k/cumm Absolute Lymphocytes (1.2-3.4) k/cumm Absolute Monocytes 0.78 H (0.11-0.7) k/cumm Sodium 135 L (136-145) mmol/L Carbon Dioxide 20.5 L (21.0-32.0) mmol/L Anion Gap 14.5 H (3-11) mmol/L Glucose 101 H (70-100) mg/dL Calcium (8.5-10.1) mg/dL AST 11 L (15-37) U/L Ur Specific [place] >= 1.030 H (1.005-1.025) Urine Protein Trace H (Negative) mg/dL Urine Ketones 15 H (Negative) mg/dL Urine Blood Moderate H (Negative) 04/13/18 04/13/18 Range/Units 06:28 06:28 WBC 12.52 H (4.4-10.8) k/cumm RBC 3.89 L (4.00-5.20) m/cumm Hgb 11.3 L D (12.0-15.5) g/dL Hct 33.0 L (36.0-46.0) % Absolute Neutrophils 11.39 H (1.2-6.7) k/cumm Absolute Lymphocytes 0.73 L (1.2-3.4) k/cumm Absolute Monocytes (0.11-0.7) k/cumm Sodium (136-145) mmol/L Carbon Dioxide (21.0-32.0) mmol/L Anion Gap (3-11) mmol/L Glucose 124 H (70-100) mg/dL Calcium 7.9 L (8.5-10.1) mg/dL AST (15-37) U/L Ur Specific [place] (1.005-1.025) Urine Protein (Negative) mg/dL Urine Ketones (Negative) mg/dL Urine Blood (Negative) Vital Signs Temperature 98.2 F 04/13/18 04:57 Temperature Source Tympanic 04/13/18 04:57 Pulse 85 04/13/18 04:57 Pulse Rhythm Regular 04/12/18 22:21 Respiratory Rate 18 04/13/18 04:57 Respiratory Effort Non-Labored 04/12/18 22:21 Respiratory Depth Normal 04/12/18 22:21 Respiratory Pattern Normal 04/12/18 22:21 Blood Pressure 112/53 L 04/13/18 04:57 Blood Pressure Position Sitting 04/12/18 14:06 Pulse Oximetry 94 L 04/13/18 04:57 Respiratory End-tidal CO2 36 04/12/18 21:16 Oxygen Delivery Method Room Air 04/13/18 04:57 Oxygen Flow Rate 0 04/13/18 04:57 Pain Level 6 04/13/18 00:52 Comment 04/12/18 14:06 Intake & Output 04/12/18 04/12/18 04/13/18 11:59 23:59 11:59 Intake Total 1550 / 1550 977.083 / 977.083 Output Total 200 / 200 900 / 900 Balance 1350 / 1350 77.083 / 77.083 Weight 203 lb 11.314 oz Intake: IV 1550 / 1550 977.083 / 977.083 Output: Urine 200 / 200 900 / 900 Other: Urine Color Yellow [place] Urine Appearance Clear Clear Urine Odor Normal None Emesis Description None Voiding Methods Toilet Laboratory Results WBC 12.52 k/cumm (4.4-10.8) H 04/13/18 06:28 RBC 3.89 m/cumm (4.00-5.20) L 04/13/18 06:28 Hgb 11.3 g/dL (12.0-15.5) L D 04/13/18 06:28 Hct 33.0 % (36.0-46.0) L 04/13/18: MCV 84.8 fL (80-95) 04/13/18 06: MCH 29.0 pg (27.0-33.0) 04/13/18 06: MCHC 34.2 g/dL (32.0-36.0) 04/13/18: RDW 12.7 % (11.7-14.6) 04/13/18 06:28 Plt Count 200 x1000/uL (130-400) D 04/13/18: MPV 10.4 fL (8.0-11.0) 04/13/18 06:28 Immature Gran % 0.2 04/13/18 06: Neutrophils % 91.0 04/13/18 06: Lymphocytes % 5.8 04/13/18: Monocytes % 3.0 04/13/18:28 Eosinophils % 0.0 04/13/18 06: Basophils % 0.0 04/13/18 06:28 Absolute Neutrophils 11.39 k/cumm (1.2-6.7) H 04/13/18 06:28 Absolute Lymphocytes 0.73 k/cumm (1.2-3.4) L 04/13/18 06:28 Absolute Monocytes 0.38 k/cumm (0.11-0.7) 04/13/18 06:28 Absolute Eosinophils 0.00 k/cumm (0.0-0.7) 04/13/18 06:28 Absolute Basophils 0.00 k/cumm (0.0-0.2) 04/13/18 06:28 Sodium 137 mmol/L (136-145) 04/13/18 06:28 Potassium 4.1 mmol/L (3.5-5.1) 04/13/18 06:28 Chloride 103 mmol/L (98-107) 04/13/18 06:28 Carbon Dioxide 24.8 mmol/L (21.0-32.0) 04/13/18 06:28 Anion Gap 9.2 mmol/L (3-11) 04/13/18 06:28 BUN 8 mg/dL (7-18) 04/13/18 06:28 Creatinine 0.69 mg/dL (0.55-1.02) 04/13/18 06:28 Estimated GFR/1.73 m2 >= 60.00 (mL/min/1.73m2) 04/13/18 06:28 Glucose 124 mg/dL (70-100) H 04/13/18 06:28 Calcium 7.9 mg/dL (8.5-10.1) L 04/13/18 06:28 Magnesium 1.9 mg/dL (1.8-2.4) 04/13/18 06:28 Total Bilirubin 0.4 mg/dL (0.2-1.0) 04/12/18 14:20 AST 11 U/L (15-37) L 04/12/18 14:20 ALT 19 U/L (12-78) 04/12/18 14:20 Alkaline Phosphatase 90 U/L (46-116) 04/12/18 14:20 Total Protein 7.7 g/dL (6.4-8.2) 04/12/18 14:20 Albumin 3.9 g/dL (3.4-5.0) 04/12/18 14:20 Lipase 126 U/L (73-393) 04/12/18 14:20 Urine Color Yellow (Yellow) 04/12/18 14:30 Urine Clarity Sl cloudy 04/12/18 14:30 Urine pH 5.5 (5-8) 04/12/18 14:30 Ur Specific [place] >= 1.030 (1.005-1.025) H 04/12/18 14:30 Urine Protein Trace mg/dL (Negative) H 04/12/18 14:30 Urine Ketones 15 mg/dL (Negative) H 04/12/18 14:30 Urine Blood Moderate (Negative) H 04/12/18 14:30 Urine Nitrite Negative (Negative) 04/12/18 14:30 Urine Bilirubin Negative (Negative) 04/12/18 14:30 Urine Urobilinogen 0.2 EU/dL (Up TO 0.2) 04/12/18 14:30 Ur Leukocyte Esterase Negative (Negative) 04/12/18 14:30 Urine RBC 0-2 (0-2) 04/12/18 14:30 Urine WBC 0-2 HPF (0-5) 04/12/18 14:30 Ur Epithelial Cells Few HPF (Negative) 04/12/18 14:30 Urine Crystals Few amorphous HPF (Negative) 04/12/18 14:30 Urine Bacteria Rare HPF (Negative) 04/12/18 14:30 Urine Casts Negative LPF (Negative) 04/12/18 14:30 Urine Mucus Heavy (Negative) 04/12/18 14:30 Urine Other (Negative) 04/12/18 14:30 Ur Culture Indicated? No 04/12/18 14:30 Urine Glucose Negative mg/dL (Negative) 04/12/18 14:30
[2018-04-13] MEDS: Ibuprofen 600 MG TAB PO ×2 (07:57→11:28)
--- NOTE | 2018-04-13 08:47 | PHARADMIT ---
Admission Pharmacy Clinical Review ACUTE APPENDICITIS Code Status Full Code Current Weight Wgt- 92.4 kg Renally Cleared and Narrow Therapeutic Index Meds CrCl~ 82.43 mL/min Meds-OK QTc Value / Action Taken NA BP Control, Fever BP- 112/53 Tmax- 37.1C Electrolytes reviewed Na-137 K+4.1 Mag-1.9 DVT Prophylaxis Lovenox Opiate Usage / Scheduled Bowel Regimen Ordered Yes No Plt/SCr for Heparin / Enoxaparin Plts-200 SCr-0.69 INR for Warfarin NA H/H stable, WBC/Bands H&H- 11.3/33.0 WBC-12.52 Antibiotic appropriateness Rocephin Cultures and Sensitivities none Surgical ABX d/c within 24 hr Yes DM control / Insulin Dosing BG-124 Heart Failure (Check EF%) (MITESH's, B-Block, Diuretics) none IV to PO Switch No Home Meds Reviewed Yes Home Meds Not Ordered Lisinopril, NTG, Amoxicillin Comments
[2018-04-13 11:30] VITALS: BP 107/65; PULSE 89; RESP 17; TEMP 37.2; O2SAT 98
[2018-04-13] MEDS: Acetaminophen 325 MG TAB 650 MG PO (11:32)
--- NOTE | 2018-04-13 12:35 | PDOC.CMIN ---
- If Service Date Differs Date of service: 04/13/18 Time of Service: 12:35 Care Management Initial Assess REASON FOR HOSPITALIZATION:: Acute Appendicitis PAST MEDICAL HISTORY/PAST SURGICAL HISTORY:: Insomnia (Chronic). HTN (hypertension) (Chronic). Hypercholesterolemia (Chronic). Tubal ligation status (Inactive) PREVIOUS FUNCTIONAL STATUS/SOCIAL/FAMILY SUPPORTS:: Kitty resides with her Deejay and son in [place]. She helps to care for her and son at home. She does not drive, and depends on her for transportation. CURRENT FUNCTIONAL STATUS:: Kitty is lying in bed this morning. Pleasant and open to discussion. ADVANCE DIRECTIVES:: None on file Has patient been provided with information about the portal?: Yes Did the patient sign up for the portal?: No CODE STATUS:: Full Code INSURANCE COVERAGE / FINANCIAL ISSUES:: CURRENT HOME/COMMUNITY SERVICES/EQUIPMENT:: Currently Kitty has no services or medical equipment in the community. PRIMARY CARE PHYSICIAN:: [facility] POTENTIAL DISCHARGE NEEDS:: F/U appointment with Dr. Watson. PATIENT/FAMILY EDUCATION NEEDS:: Review DC instructions, any limitations, and ongoing DC planning discussion. Discuss Ask Me Three ANTICIPATED BARRIERS TO DISCHARGE:: None identified at this time. TRANSPORTATION:: Via private vehicle with family PLAN:: Kitty will return home with no anticipated services. She will F/U with Dr. Watson and plan of care as prescribed. Transportation via private vehicle with family.
--- NOTE | 2018-04-13 12:45 | INITIAL_ITS ---
- If Service Date Differs Date of service: 04/13/18 Time of Service: 12:35 Care Management Initial Assess REASON FOR HOSPITALIZATION:: Acute Appendicitis PAST MEDICAL HISTORY/PAST SURGICAL HISTORY:: Insomnia (Chronic). HTN ( hypertension) (Chronic). Hypercholesterolemia (Chronic). Tubal ligation status (Inactive) PREVIOUS FUNCTIONAL STATUS/SOCIAL/FAMILY SUPPORTS:: Kitty resides with her Deejay and son in [place]. She helps to care for her and son at home. She does not drive, and depends on her for transportation. CURRENT FUNCTIONAL STATUS:: Kitty is lying in bed this morning. Pleasant and open to discussion. ADVANCE DIRECTIVES:: None on file Has patient been provided with information about the portal?: Yes Did the patient sign up for the portal?: No CODE STATUS:: Full Code INSURANCE COVERAGE / FINANCIAL ISSUES:: CURRENT HOME/COMMUNITY SERVICES/EQUIPMENT:: Currently Kitty has no services or medical equipment in the community. PRIMARY CARE PHYSICIAN:: [facility] POTENTIAL DISCHARGE NEEDS:: F/U appointment with Dr. Watson. PATIENT/FAMILY EDUCATION NEEDS:: Review DC instructions, any limitations, and ongoing DC planning discussion. Discuss Ask Me Three ANTICIPATED BARRIERS TO DISCHARGE:: None identified at this time. TRANSPORTATION:: Via private vehicle with family PLAN:: Kitty will return home with no anticipated services. She will F/U with Dr. Watson and plan of care as prescribed. Transportation via private vehicle with family.
--- NOTE | 2018-04-13 12:45 | W.PM.DS.N ---
DS: Diagnosis Discharge Diagnosis (1) Acute appendicitis with generalized peritonitis: Status: Acute Discharge Plan Disposition Condition: Poor Discharge Details Reason For Visit: ACUTE APPENDICITIS Admit Date/Time: 04/12/18 16:47 Admit Provider: Earle Watson Attending Provider: Earle Watson Primary Care Provider: [facility] Saavedra Home Meds and New Rx's Prescriptions: New acetaminophen [Tylenol] 325 mg Tablet 650 mg PO Q6H PRN PRNQty: 30 RF: 0 ibuprofen [IBU] 600 mg Tablet 600 mg PO QID Qty: 30 RF: 0 Continue aspirin 81 MG tablet,delayed release (DR/EC) 81 mg PO DAILY Qty: 30 RF: 0 lisinopril [Prinivil] 10 MG tablet 10 mg PO DAILY Qty: 30 RF: 0 omeprazole magnesium [Prilosec OTC] 20 MG tablet,delayed release (DR/EC) 20 mg PO DAILY@0730 Qty: 30 RF: 0 quetiapine [Seroquel] 100 MG tablet 100 mg PO DAILY RF: 0 ibuprofen 600 MG tablet 600 mg PO QID PRN (Reason: Pain) Qty: 20 RF: 0 amoxicillin 500 mg Capsule 500 mg PO TID Qty: 20 RF: 0 Discontinued nitroglycerin [Nitrostat] 0.4 MG tablet, sublingual 0.4 mg Sublingual Q5 MIN PRN X3 PRNQty: 25 RF: 0 Discharge Instructions Instructions: Laparoscopic Appendectomy (DC) Additional Instructions: General Surgery Discharge Information Discharge Activities: 1. Continue incentive spirometry 10-15 times~every hour while awake and as tolerated 2. Ambulate at least 3 times a day for 15 minutes and as tolerated 3. Out of bed at least 3 times a day for 2 hours at a time, and as tolerated 4. You can shower, pat wounds dry, do not rub Restrictions: 1. No heavy lifting over 20 pounds for 2 weeks, no strenuous bending or twisting. 2. No swimming, baths, or immersion of wounds in water for 1 week. Follow-up appointments: Dr. Watson in 2 weeks on 04/26 at 11:30. His office is located in the upper level of the [facility] [address] [place] [address] hospital. The office number is [phone]. For any questions or to make, confirm appointments. If you are having fever, chills, nausea, vomiting, pain not controlled with pain medications, bleeding or drainage from your wounds. Call [phone] or [phone] (after hours). I understand the above instructions and have no questions. Signature of Patient or Responsible Adult Escort Date/Time Name of Responsible Adult Escort Sugnature of Nurse Date/Time Referrals: Earle Watson DO [ [facility] STAFF PHYSICIAN] - 04/26/18 11:30 am Activity:: No lifting, pulling or pushing >20 lb Shower/Bathe:: 24 hours Equipment/Supplies:: No Equipment Needed Diet:: As Tolerated DS: Data Vitals/I&O Vitals and I&O: Vital Signs Temperature 98.4 F 04/13/18 07:20 Temperature Source Tympanic 04/13/18 07:20 Pulse 87 04/13/18 07:20 Pulse Rhythm Regular 04/13/18 08:01 Respiratory Rate 18 04/13/18 07:20 Respiratory Effort Non-Labored 04/13/18 08:01 Respiratory Depth Normal 04/13/18 08:01 Respiratory Pattern Normal 04/13/18 08:01 Blood Pressure 108/68 10/04/18 07:20 Blood Pressure Position Sitting 04/12/18 14:06 Pulse Oximetry 99 04/13/18 07:20 Respiratory End-tidal CO2 36 04/12/18 21:16 Oxygen Delivery Method Room Air 04/13/18 07:20 Oxygen Flow Rate 0 04/13/18 07:20 Pain Level 7 04/13/18 11:32 Comment 04/12/18 14:06 Intake & Output 04/12/18 04/13/18 04/13/18 23:59 11:59 23:59 Intake Total 1550 / 1550 1697.083 / 1697.083 Output Total 200 / 200 900 / 900 Balance 1350 / 1350 797.083 / 797.083 Weight 203 lb 11.314 oz Intake: IV 1550 / 1550 977.083 / 977.083 Oral 720 / 720 Output: Urine 200 / 200 900 / 900 Other: Urine Color Yellow [place] Urine Appearance Clear Clear Urine Odor Normal None Emesis Description None Voiding Methods Toilet Pending studies at discharge: Monitoring of Cardiac Electrical Activity, External Approach (04/27/17) WBC 12.52 k/cumm (4.4-10.8) H 04/13/18 06:28 RBC 3.89 m/cumm (4.00-5.20) L 04/13/18 06:28 Hgb 11.3 g/dL (12.0-15.5) L D 04/13/18 06:28 Hct 33.0 % (36.0-46.0) L 04/13/18 06:28 MCV 84.8 fL (80-95) 04/13/18 06:28 MCH 29.0 pg (27.0-33.0) 04/13/18 06:28 MCHC 34.2 g/dL (32.0-36.0) 04/13/18 06:28 RDW 12.7 % (11.7-14.6) 04/13/18 06:28 Plt Count 200 x1000/uL (130-400) D 04/13/18 06:28 MPV 10.4 fL (8.0-11.0) 04/13/18 06:28 Immature Gran % 0.2 04/13/18 06:28 Neutrophils % 91.0 04/13/18 06:28 Lymphocytes % 5.8 04/13/18 06:28 Monocytes % 3.0 04/13/18 06:28 Eosinophils % 0.0 04/13/18 06:28 Basophils % 0.0 04/13/18 06:28 Absolute Neutrophils 11.39 k/cumm (1.2-6.7) H 04/13/18 06:28 Absolute Lymphocytes 0.73 k/cumm (1.2-3.4) L 04/13/18 06:28 Absolute Monocytes 0.38 k/cumm (0.11-0.7) 04/13/18 06:28 Absolute Eosinophils 0.00 k/cumm (0.0-0.7) 04/13/18 06:28 Absolute Basophils 0.00 k/cumm (0.0-0.2) 04/13/18 06:28 Sodium 137 mmol/L (136-145) 04/13/18 06:28 Potassium 4.1 mmol/L (3.5-5.1) 04/13/18 06:28 Chloride 103 mmol/L (98-107) 04/13/18 06:28 Carbon Dioxide 24.8 mmol/L (21.0-32.0) 04/13/18 06:28 Anion Gap 9.2 mmol/L (3-11) 04/13/18 06:28 BUN 8 mg/dL (7-18) 04/13/18 06:28 Creatinine 0.69 mg/dL (0.55-1.02) 04/13/18 06:28 Estimated GFR/1.73 m2 >= 60.00 (mL/min/1.73m2) 04/13/18 06:28 Glucose 124 mg/dL (70-100) H 04/13/18 06:28 Calcium 7.9 mg/dL (8.5-10.1) L 04/13/18 06:28 Magnesium 1.9 mg/dL (1.8-2.4) 04/13/18 06:28 Total Bilirubin 0.4 mg/dL (0.2-1.0) 04/12/18 14:20 AST 11 U/L (15-37) L 04/12/18 14:20 ALT 19 U/L (12-78) 04/12/18 14:20 Alkaline Phosphatase 90 U/L (46-116) 04/12/18 14:20 Total Protein 7.7 g/dL (6.4-8.2) 04/12/18 14:20 Albumin 3.9 g/dL (3.4-5.0) 04/12/18 14:20 Lipase 126 U/L (73-393) 04/12/18 14:20 Urine Color Yellow (Yellow) 04/12/18 14:30 Urine Clarity Sl cloudy 04/12/18 14:30 Urine pH 5.5 (5-8) 04/12/18 14:30 Ur Specific [place] >= 1.030 (1.005-1.025) H 04/12/18 14:30 Urine Protein Trace mg/dL (Negative) H 04/12/18 14:30 Urine Ketones 15 mg/dL (Negative) H 04/12/18 14:30 Urine Blood Moderate (Negative) H 04/12/18 14:30 Urine Nitrite Negative (Negative) 04/12/18 14:30 Urine Bilirubin Negative (Negative) 04/12/18 14:30 Urine Urobilinogen 0.2 EU/dL (Up TO 0.2) 04/12/18 14:30 Ur Leukocyte Esterase Negative (Negative) 04/12/18 14:30 Urine RBC 0-2 (0-2) 04/12/18 14:30 Urine WBC 0-2 HPF (0-5) 04/12/18 14:30 Ur Epithelial Cells Few HPF (Negative) 04/12/18 14:30 Urine Crystals Few amorphous HPF (Negative) 04/12/18 14:30 Urine Bacteria Rare HPF (Negative) 04/12/18 14:30 Urine Casts Negative LPF (Negative) 04/12/18 14:30 Urine Mucus Heavy (Negative) 04/12/18 14:30 Urine Other (Negative) 04/12/18 14:30 Ur Culture Indicated? No 04/12/18 14:30 Urine Glucose Negative mg/dL (Negative) 04/12/18 14:30 Labs on day of discharge: Labs from last 24 hours 04/13/18 04/13/18 04/12/18 06:28 06:28 14:30 WBC 12.52 H RBC 3.89 L Hgb 11.3 L D Hct 33.0 L MCV 84.8 MCH 29.0 MCHC 34.2 RDW 12.7 Plt Count 200 D MPV 10.4 Immature Gran % 0.2 Neutrophils % 91.0 Lymphocytes % 5.8 Monocytes % 3.0 Eosinophils % 0.0 Basophils % 0.0 Absolute Neutrophils 11.39 H Absolute Lymphocytes 0.73 L Absolute Monocytes 0.38 Absolute Eosinophils 0.00 Absolute Basophils 0.00 Sodium 137 Potassium 4.1 Chloride 103 Carbon Dioxide 24.8 Anion Gap 9.2 BUN 8 Creatinine 0.69 Estimated GFR/1.73 m2 >= 60.00 Glucose 124 H Calcium 7.9 L Magnesium 1.9 Total Bilirubin AST ALT Alkaline Phosphatase Total Protein Albumin Lipase Urine Color Yellow Urine Clarity Sl cloudy Urine pH 5.5 Ur Specific [place] >= 1.030 H Urine Protein Trace H Urine Ketones 15 H Urine Blood Moderate H Urine Nitrite Negative Urine Bilirubin Negative Urine Urobilinogen 0.2 Ur Leukocyte Esterase Negative Urine RBC 0-2 Urine WBC 0-2 Ur Epithelial Cells Few Urine Crystals Few amorphous Urine Bacteria Rare Urine Casts Negative Urine Mucus Heavy Urine Other Ur Culture Indicated? No Urine Glucose Negative 04/12/18 04/12/18 14:20 14:20 WBC 17.78 H RBC 4.81 Hgb 14.0 Hct 39.6 MCV 82.3 MCH 29.1 MCHC 35.4 RDW 12.9 Plt Count 301 MPV 10.4 Immature Gran % 0.2 Neutrophils % 84.6 Lymphocytes % 9.8 Monocytes % 4.4 Eosinophils % 0.8 Basophils % 0.2 Absolute Neutrophils 15.04 H Absolute Lymphocytes 1.74 Absolute Monocytes 0.78 H Absolute Eosinophils 0.14 Absolute Basophils 0.04 Sodium 135 L Potassium 4.0 Chloride 100 Carbon Dioxide 20.5 L Anion Gap 14.5 H BUN 9 Creatinine 0.77 Estimated GFR/1.73 m2 >= 60.00 Glucose 101 H Calcium 9.0 Magnesium Total Bilirubin 0.4 AST 11 L ALT 19 Alkaline Phosphatase 90 Total Protein 7.7 Albumin 3.9 Lipase 126 Urine Color Urine Clarity Urine pH Ur Specific [place] Urine Protein Urine Ketones Urine Blood Urine Nitrite Urine Bilirubin Urine Urobilinogen Ur Leukocyte Esterase Urine RBC Urine WBC Ur Epithelial Cells Urine Crystals Urine Bacteria Urine Casts Urine Mucus Urine Other Ur Culture Indicated? Urine Glucose
--- NOTE | 2018-04-13 12:59 | DSE_ITS ---
DS: Diagnosis Discharge Diagnosis (1) Acute appendicitis with generalized peritonitis: Status: Acute Discharge Plan Disposition Condition: Poor Discharge Details Reason For Visit: ACUTE APPENDICITIS Admit Date/Time: 04/12/18 16:47 Admit Provider: Earle Watson Attending Provider: Earle Watson Primary Care Provider: Villa Saavedra Home Meds and New Rx's Prescriptions: New acetaminophen [Tylenol] 325 mg Tablet 650 mg PO Q6H PRN PRNQty: 30 RF: 0 ibuprofen [IBU] 600 mg Tablet 600 mg PO QID Qty: 30 RF: 0 Continue aspirin 81 MG tablet,delayed release (DR/EC) 81 mg PO DAILY Qty: 30 RF: 0 lisinopril [Prinivil] 10 MG tablet 10 mg PO DAILY Qty: 30 RF: 0 omeprazole magnesium [Prilosec OTC] 20 MG tablet,delayed release (DR/EC) 20 mg PO DAILY@0730 Qty: 30 RF: 0 quetiapine [Seroquel] 100 MG tablet 100 mg PO DAILY RF: 0 ibuprofen 600 MG tablet 600 mg PO QID PRN (Reason: Pain) Qty: 20 RF: 0 amoxicillin 500 mg Capsule 500 mg PO TID Qty: 20 RF: 0 Discontinued nitroglycerin [Nitrostat] 0.4 MG tablet, sublingual 0.4 mg Sublingual Q5 MIN PRN X3 PRNQty: 25 RF: 0 Discharge Instructions Instructions: Laparoscopic Appendectomy (DC) Additional Instructions: General Surgery Discharge Information Discharge Activities: 1. Continue incentive spirometry 10-15 times~every hour while awake and as tolerated 2. Ambulate at least 3 times a day for 15 minutes and as tolerated 3. Out of bed at least 3 times a day for 2 hours at a time, and as tolerated 4. You can shower, pat wounds dry, do not rub Restrictions: 1. No heavy lifting over 20 pounds for 2 weeks, no strenuous bending or twisting. 2. No swimming, baths, or immersion of wounds in water for 1 week. Follow-up appointments: Dr. Watson in 2 weeks on 04/26 at 11:30. His office is located in the upper level of the [facility] [address] [place] [address] hospital. The office number is [phone]. For any questions or to make, confirm appointments. If you are having fever, chills, nausea, vomiting, pain not controlled with pain medications, bleeding or drainage from your wounds. Call [phone] or [phone] (after hours). I understand the above instructions and have no questions. _ Signature of Patient or Responsible Adult Escort Date/Time _ Name of Responsible Adult Escort _ Sugnature of Nurse Date/Time Referrals: Earle Watson DO [ [facility]FF PHYSICIAN] - 04/26/18 11:30 am Activity:: No lifting, pulling or pushing >20 lb Shower/Bathe:: 24 hours Equipment/Supplies:: No Equipment Needed Diet:: As Tolerated DS: Data Vitals/I&O Vitals and I&O: Vital Signs Temperature 98.4 F 04/13/18 07:20 Temperature Source Tympanic 04/13/18 07:20 Pulse 87 04/13/18 07:20 Pulse Rhythm Regular 04/13/18 08:01 Respiratory Rate 18 04/13/18 07:20 Respiratory Effort Non-Labored 04/13/18 08:01 Respiratory Depth Normal 04/13/18 08:01 Respiratory Pattern Normal 04/13/18 08:01 Blood Pressure 108/68 10/04/18 07:20 Blood Pressure Position Sitting 04/12/18 14:06 Pulse Oximetry 99 04/13/18 07:20 Respiratory End-tidal CO2 36 04/12/18 21:16 Oxygen Delivery Method Room Air 04/13/18 07:20 Oxygen Flow Rate 0 04/13/18 07:20 Pain Level 7 04/13/18 11:32 Comment 04/12/18 14:06 Intake & Output 04/12/18 04/13/18 04/13/18 23:59 11:59 23:59 Intake Total 1550 / 1550 1697.083 / 1697.083 Output Total 200 / 200 900 / 900 Balance 1350 / 1350 797.083 / 797.083 Weight 203 lb 11.314 oz Intake: IV 1550 / 1550 977.083 / 977.083 Oral 720 / 720 Output: Urine 200 / 200 900 / 900 Other: Urine Color Yellow [place] Urine Appearance Clear Clear Urine Odor Normal None Emesis Description None Voiding Methods Toilet Pending studies at discharge: Monitoring of Cardiac Electrical Activity, External Approach (04/27/17) WBC 12.52 k/cumm (4.4-10.8) H 04/13/18 06:28 RBC 3.89 m/cumm (4.00-5.20) L 04/13/18 06:28 Hgb 11.3 g/dL (12.0-15.5) L D 04/13/18 06:28 Hct 33.0 % (36.0-46.0) L 04/13/18 06:28 MCV 84.8 fL (80-95) 04/13/18 06:28 MCH 29.0 pg (27.0-33.0) 04/13/18 06:28 MCHC 34.2 g/dL (32.0-36.0) 04/13/18 06:28 RDW 12.7 % (11.7-14.6) 04/13/18 06:28 Plt Count 200 x1000/uL (130-400) D 04/13/18 06:28 MPV 10.4 fL (8.0-11.0) 04/13/18 06:28 Immature Gran % 0.2 04/13/18 06:28 Neutrophils % 91.0 04/13/18 06:28 Lymphocytes % 5.8 04/13/18 06:28 Monocytes % 3.0 04/13/18 06:28 Eosinophils % 0.0 04/13/18 06:28 Basophils % 0.0 04/13/18 06:28 Absolute Neutrophils 11.39 k/cumm (1.2-6.7) H 04/13/18 06:28 Absolute Lymphocytes 0.73 k/cumm (1.2-3.4) L 04/13/18 06:28 Absolute Monocytes 0.38 k/cumm (0.11-0.7) 04/13/18 06:28 Absolute Eosinophils 0.00 k/cumm (0.0-0.7) 04/13/18 06:28 Absolute Basophils 0.00 k/cumm (0.0-0.2) 04/13/18 06:28 Sodium 137 mmol/L (136-145) 04/13/18 06:28 Potassium 4.1 mmol/L (3.5-5.1) 04/13/18 06:28 Chloride 103 mmol/L (98-107) 04/13/18 06:28 Carbon Dioxide 24.8 mmol/L (21.0-32.0) 04/13/18 06:28 Anion Gap 9.2 mmol/L (3-11) 04/13/18 06:28 BUN 8 mg/dL (7-18) 04/13/18 06:28 Creatinine 0.69 mg/dL (0.55-1.02) 04/13/18 06:28 Estimated GFR/1.73 m2 >= 60.00 (mL/min/1.73m2) 04/13/18 06:28 Glucose 124 mg/dL (70-100) H 04/13/18 06:28 Calcium 7.9 mg/dL (8.5-10.1) L 04/13/18 06:28 Magnesium 1.9 mg/dL (1.8-2.4) 04/13/18 06:28 Total Bilirubin 0.4 mg/dL (0.2-1.0) 04/12/18 14:20 AST 11 U/L (15-37) L 04/12/18 14:20 ALT 19 U/L (12-78) 04/12/18 14:20 Alkaline Phosphatase 90 U/L (46-116) 04/12/18 14:20 Total Protein 7.7 g/dL (6.4-8.2) 04/12/18 14:20 Albumin 3.9 g/dL (3.4-5.0) 04/12/18 14:20 Lipase 126 U/L (73-393) 04/12/18 14:20 Urine Color Yellow (Yellow) 04/12/18 14:30 Urine Clarity Sl cloudy 04/12/18 14:30 Urine pH 5.5 (5-8) 04/12/18 14:30 Ur Specific [place] >= 1.030 (1.005-1.025) H 04/12/18 14:30 Urine Protein Trace mg/dL (Negative) H 04/12/18 14:30 Urine Ketones 15 mg/dL (Negative) H 04/12/18 14:30 Urine Blood Moderate (Negative) H 04/12/18 14:30 Urine Nitrite Negative (Negative) 04/12/18 14:30 Urine Bilirubin Negative (Negative) 04/12/18 14:30 Urine Urobilinogen 0.2 EU/dL (Up TO 0.2) 04/12/18 14:30 Ur Leukocyte Esterase Negative (Negative) 04/12/18 14:30 Urine RBC 0-2 (0-2) 04/12/18 14:30 Urine WBC 0-2 HPF (0-5) 04/12/18 14:30 Ur Epithelial Cells Few HPF (Negative) 04/12/18 14:30 Urine Crystals Few amorphous HPF (Negative) 04/12/18 14:30 Urine Bacteria Rare HPF (Negative) 04/12/18 14:30 Urine Casts Negative LPF (Negative) 04/12/18 14:30 Urine Mucus Heavy (Negative) 04/12/18 14:30 Urine Other (Negative) 04/12/18 14:30 Ur Culture Indicated? No 04/12/18 14:30 Urine Glucose Negative mg/dL (Negative) 04/12/18 14:30 Labs on day of discharge: Labs from last 24 hours 04/13/18 04/13/18 04/12/18 06:28 06:28 14:30 WBC 12.52 H RBC 3.89 L Hgb 11.3 L D Hct 33.0 L MCV 84.8 MCH 29.0 MCHC 34.2 RDW 12.7 Plt Count 200 D MPV 10.4 Immature Gran % 0.2 Neutrophils % 91.0 Lymphocytes % 5.8 Monocytes % 3.0 Eosinophils % 0.0 Basophils % 0.0 Absolute Neutrophils 11.39 H Absolute Lymphocytes 0.73 L Absolute Monocytes 0.38 Absolute Eosinophils 0.00 Absolute Basophils 0.00 Sodium 137 Potassium 4.1 Chloride 103 Carbon Dioxide 24.8 Anion Gap 9.2 BUN 8 Creatinine 0.69 Estimated GFR/1.73 m2 >= 60.00 Glucose 124 H Calcium 7.9 L Magnesium 1.9 Total Bilirubin AST ALT Alkaline Phosphatase Total Protein Albumin Lipase Urine Color Yellow Urine Clarity Sl cloudy Urine pH 5.5 Ur Specific [place] >= 1.030 H Urine Protein Trace H Urine Ketones 15 H Urine Blood Moderate H Urine Nitrite Negative Urine Bilirubin Negative Urine Urobilinogen 0.2 Ur Leukocyte Esterase Negative Urine RBC 0-2 Urine WBC 0-2 Ur Epithelial Cells Few Urine Crystals Few amorphous Urine Bacteria Rare Urine Casts Negative Urine Mucus Heavy Urine Other Ur Culture Indicated? No Urine Glucose Negative 04/12/18 04/12/18 14:20 14:20 WBC 17.78 H RBC 4.81 Hgb 14.0 Hct 39.6 MCV 82.3 MCH 29.1 MCHC 35.4 RDW 12.9 Plt Count 301 MPV 10.4 Immature Gran % 0.2 Neutrophils % 84.6 Lymphocytes % 9.8 Monocytes % 4.4 Eosinophils % 0.8 Basophils % 0.2 Absolute Neutrophils 15.04 H Absolute Lymphocytes 1.74 Absolute Monocytes 0.78 H Absolute Eosinophils 0.14 Absolute Basophils 0.04 Sodium 135 L Potassium 4.0 Chloride 100 Carbon Dioxide 20.5 L Anion Gap 14.5 H BUN 9 Creatinine 0.77 Estimated GFR/1.73 m2 >= 60.00 Glucose 101 H Calcium 9.0 Magnesium Total Bilirubin 0.4 AST 11 L ALT 19 Alkaline Phosphatase 90 Total Protein 7.7 Albumin 3.9 Lipase 126 Urine Color Urine Clarity Urine pH Ur Specific [place] Urine Protein Urine Ketones Urine Blood Urine Nitrite Urine Bilirubin Urine Urobilinogen Ur Leukocyte Esterase Urine RBC Urine WBC Ur Epithelial Cells Urine Crystals Urine Bacteria Urine Casts Urine Mucus Urine Other Ur Culture Indicated? Urine Glucose
== END 2018-04-13 16:06 | disposition home or self-care (01) ==
LOC: ER 16:57 → MS 19:34
PROVIDERS: Admitting Provider Surgery; Emergency Provider Physician Assistant; PCP Specialist/Technologist Athletic Trainer; Visit Provider Surgery
PROC: 0DTJ4ZZ Resection of Appendix, Percutaneous Endoscopic Approach (ICD-10-PCS; CPT 44970; principal; 2018-04-12 19:30)
DX: K35.20 Acute appendicitis with generalized peritonitis, without abscess (principal)
CPT/HCPCS: 44970; 36415; 76770; 80048; 80053; 81025; 83690; 93005; 94640; 96361; 96365; 96375; 96376; 99223; 99285; J1650; NC; 74177; 81003; 81015; 83735; 85025; 88304; 93010; 99284; G0378; J0131; J1100; J1885; J2250; J2270; J2405; J3010; J3490; J7613; J7620

== ENCOUNTER 2018-05-12 16:45 | Emergency (ER) | payer OTHER, SELFPAY ==
[2018-05-12 16:58] VITALS: BP 149/106; PULSE 88; RESP 18; TEMP 36.5; O2SAT 98
[2018-05-12 17:03] VITALS: BP 154/91
== END 2018-05-12 18:22 ==
LOC: ER 18:22
PROVIDERS: PCP Specialist/Technologist Athletic Trainer
DX: Z53.21 Procedure and treatment not carried out due to patient leaving prior to being seen by health care provider (principal)

== ENCOUNTER 2018-05-13 08:03 | Emergency (ER) | payer OTHER, SELFPAY ==
[2018-05-13 08:05] VITALS: BP 155/102; PULSE 96; RESP 15; TEMP 36.7; O2SAT 95
--- NOTE | 2018-05-13 08:37 | W.ED.GENAD ---
Discharge Plan Disposition Patient Disposition: HOME Condition: Stable Discharge Details Chief Complaint: DentalOral Clinical Impression: Dental infection Primary Care Provider: Villa Saavedra ED Provider: Megan Mills Home Meds and New Rx's Prescriptions: New amoxicillin-pot clavulanate [Augmentin] 875-125 mg tablet 1 tab PO BID 10 Days Qty: 20 RF: 0 Continue aspirin 81 MG tablet,delayed release (DR/EC) 81 mg PO DAILY Qty: 30 RF: 0 lisinopril [Prinivil] 10 MG tablet 10 mg PO DAILY Qty: 30 RF: 0 omeprazole magnesium [Prilosec OTC] 20 MG tablet,delayed release (DR/EC) 20 mg PO DAILY@0730 Qty: 30 RF: 0 quetiapine [Seroquel] 100 MG tablet 100 mg PO DAILY RF: 0 ibuprofen 600 MG tablet 600 mg PO QID PRN (Reason: Pain) Qty: 20 RF: 0 acetaminophen [Tylenol] 325 mg Tablet 650 mg PO Q6H PRN PRNQty: 30 RF: 0 Discharge Instructions Instructions: Dental Abscess (ED) Additional Instructions: You do not have an obvious dental abscess on exam today but there are findings consistent with a dental infection. You likely will continue to have symptoms until the tooth is extracted (removed). Take the antibiotics until finished. Alternate Tylenol and Motrin as needed and directed for pain. Follow-up with a dentist as soon as possible once your dental insurance is activated. Return immediately to the emergency department with any worsening or new concerning symptoms. Discharge Data Discharge Date/Time-TO BE ENTERED AT DEPARTURE: 05/13/18 08:48 Discharge Physician: Megan Mills Medical Decision Making 43-year-old female who presents with right-sided lower dental pain for several days. Was on amoxicillin 1 month ago for similar pain in same tooth. Also had a history of appendicitis with laparoscopic appendectomy 1 month ago and was given Ceftriaxone in the ED. Poor dentition and multiple dental caries and missing teeth throughout. Tenderness to palpation with surrounding edema and erythema of possible tooth #27 but no abscess identified. Trismus. No submandibular swelling. No evidence of Ryan's angina. Patient appears nontoxic and in no acute distress. She is afebrile. Patient is requesting antibiotics. She states her dental insurance will be activated within the next month. She was given dentist contact information for follow-up. As she was treated with amoxicillin 1 month ago, will send home with a prescription for Augmentin. She is instructed to alternate Tylenol and Motrin. She is instructed to return here immediately with any worsening symptoms. HPI General Mode of arrival: ambulatory. Date/Time Provider Initiated Documentation: 05/13/18 08:18. Limitations to Documentation: no limitations. Information obtained by: patient. HPI Narrative: Patient is a 43-year-old female who presents with right sided lower dental pain for the past several days. Patient states she had an infection in this tooth 1 month ago and was placed on amoxicillin. She states the symptoms never fully improved. She states she is here only for antibiotics. Patient denies known fever, difficulty swallowing, and has been able to eat and drink normally. Past medical history: Hypertension, hyperlipidemia, bipolar disorder Surgical history: Appendectomy, tubal ligation, tonsillectomy, leg tumor resection Social history: Smokes tobacco, denies alcohol or drugs Medications: Tylenol, aspirin, lisinopril, Prilosec, seroquel Allergies: Elavil, tramadol, BuSpar Related Data Home Medications Medication Instructions Recorded Confirmed quetiapine [Seroquel] 100 mg PO DAILY 07/31/16 05/13/18 aspirin 81 mg PO DAILY #30 tabec 04/28/17 05/12/18 lisinopril [Prinivil] 10 mg PO DAILY #30 tab 04/28/17 05/13/18 omeprazole magnesium [Prilosec OTC] 20 mg PO DAILY@0730 #30 tabcr 04/28/17 05/13/18 ibuprofen 600 mg PO QID PRN #20 tab 01/12/18 05/13/18 acetaminophen [Tylenol] 650 mg PO Q6H PRN PRN #30 tab 04/13/18 05/13/18 amoxicillin-pot clavulanate 1 tab PO BID 10 Days #20 tab 05/13/18 [Augmentin] Previous Rx's Medication Instructions Recorded aspirin 81 mg PO DAILY #30 tabec 04/28/17 lisinopril [Prinivil] 10 mg PO DAILY #30 tab 04/28/17 omeprazole magnesium [Prilosec OTC] 20 mg PO DAILY@0730 #30 tabcr 04/28/17 ibuprofen 600 mg PO QID PRN #20 tab 01/12/18 acetaminophen [Tylenol] 650 mg PO Q6H PRN PRN #30 tab 04/13/18 amoxicillin-pot clavulanate 1 tab PO BID 10 Days #20 tab 05/13/18 [Augmentin] Allergies Allergy/AdvReac Type Severity Reaction Status Date / Time amitriptyline [From Elavil] AdvReac Mild Verified 05/13/18 08:12 tramadol AdvReac Mild Nausea Verified 05/13/18 08:12 buspirone [From BuSpar] AdvReac Verified 05/13/18 08:12 General Stated Complaint: DentalOral GERBER: 4 Review of Systems Review of Systems All systems reviewed & are unremarkable except as noted in HPI and below PFSH Medical History HTN (hypertension) (Chronic) Hypercholesterolemia (Chronic) Insomnia (Chronic) Social History Smoking/Tobacco Use Status: Current every day tobacco type: cigarettes alcohol intake: never substance use type: does not use Surgical History Status post laparoscopic appendectomy (Resolved) Tubal ligation status (Inactive) Exam Const General: cooperative, healthy appearing and no acute distress HENMT Head: normal to inspection Ears: TM's normal bilaterally General nose exam: external nose normal and nares normal Face and sinus: normal facial exam, no erythema, no edema and no fluctuance Mouth: oral mucosae normal Teeth and gingiva: caries, poor dentition and other (Multiple missing teeth) Teeth image: 1. Tenderness to palpation of tooth #27 with surrounding mild to moderate edema and erythema. No discrete abscess noted. Throat: posterior oropharynx normal Eyes General: appearance normal, both eyes and all related structures Neck Neck: normal visual inspection, no anterior neck swelling, no tracheal deviation and No submandibular swelling Lymphatic: no lymphedema noted Resp Effort & Inspection: normal respiratory effort and able to speak in complete sentences Cardio Rate: regular rate Skin General skin exam: no rashes or lesions noted Neuro General: alert, awake and oriented x3 Motor: muscle tone normal throughout Extrem General: normal to inspection and full ROM Psych Appearance: grossly normal Affect: normal affect Course Vital Signs Temperature 98.1 F 05/13/18 08:05 Pulse 96 H 05/13/18 08:05 Respiratory Rate 15 05/13/18 08:05 Blood Pressure 155/102 H 05/13/18 08:05 Pulse Oximetry 95 05/13/18 08:05 Temperature 98.1 F 05/13/18 08:05 Temperature Source Temporal Artery Scan 05/13/18 08:05 Pulse 96 H 05/13/18 08:05 Respiratory Rate 15 05/13/18 08:05 Respiratory Effort Non-Labored 05/13/18 08:11 Blood Pressure 155/102 H 05/13/18 08:05 Blood Pressure Position Sitting 05/13/18 08:05 Pulse Oximetry 95 05/13/18 08:05 Oxygen Delivery Method Room Air 05/13/18 08:05 Oxygen Flow Rate 0 05/13/18 08:05 Pain Level 4 05/13/18 08:05
[2018-05-13 08:38] VITALS: BP 146/96; PULSE 88
--- NOTE | 2018-05-13 08:41 | ED.GENADUL_ITS ---
Discharge Plan Disposition Patient Disposition: HOME Condition: Stable Discharge Details Chief Complaint: DentalOral Clinical Impression: Dental infection Primary Care Provider: Villa Saavedra ED Provider: Megan Mills Home Meds and New Rx's Prescriptions: New amoxicillin-pot clavulanate [Augmentin] 875-125 mg tablet 1 tab PO BID 10 Days Qty: 20 RF: 0 Continue aspirin 81 MG tablet,delayed release (DR/EC) 81 mg PO DAILY Qty: 30 RF: 0 lisinopril [Prinivil] 10 MG tablet 10 mg PO DAILY Qty: 30 RF: 0 omeprazole magnesium [Prilosec OTC] 20 MG tablet,delayed release (DR/EC) 20 mg PO DAILY@0730 Qty: 30 RF: 0 quetiapine [Seroquel] 100 MG tablet 100 mg PO DAILY RF: 0 ibuprofen 600 MG tablet 600 mg PO QID PRN (Reason: Pain) Qty: 20 RF: 0 acetaminophen [Tylenol] 325 mg Tablet 650 mg PO Q6H PRN PRNQty: 30 RF: 0 Discharge Instructions Instructions: Dental Abscess (ED) Additional Instructions: You do not have an obvious dental abscess on exam today but there are findings consistent with a dental infection. You likely will continue to have symptoms until the tooth is extracted (removed). Take the antibiotics until finished. Alternate Tylenol and Motrin as needed and directed for pain. Follow-up with a dentist as soon as possible once your dental insurance is activated. Return immediately to the emergency department with any worsening or new concerning symptoms. Discharge Data Discharge Date/Time-TO BE ENTERED AT DEPARTURE: 05/13/18 08:48 Discharge Physician: Megan Mills Medical Decision Making 43-year-old female who presents with right-sided lower dental pain for several days. Was on amoxicillin 1 month ago for similar pain in same tooth. Also had a history of appendicitis with laparoscopic appendectomy 1 month ago and was given Ceftriaxone in the ED. Poor dentition and multiple dental caries and missing teeth throughout. Tenderness to palpation with surrounding edema and erythema of possible tooth # 27 but no abscess identified. Trismus. No submandibular swelling. No evidence of Ryan's angina. Patient appears nontoxic and in no acute distress. She is afebrile. Patient is requesting antibiotics. She states her dental insurance will be activated within the next month. She was given dentist contact information for follow-up. As she was treated with amoxicillin 1 month ago, will send home with a prescription for Augmentin. She is instructed to alternate Tylenol and Motrin. She is instructed to return here immediately with any worsening symptoms. HPI General Mode of arrival: ambulatory . Date/Time Provider Initiated Documentation: 05/13/18 08:18 . Limitations to Documentation: no limitations . Information obtained by: patient . HPI Narrative: Patient is a 43-year-old female who presents with right sided lower dental pain for the past several days. Patient states she had an infection in this tooth 1 month ago and was placed on amoxicillin. She states the symptoms never fully improved. She states she is here only for antibiotics. Patient denies known fever, difficulty swallowing, and has been able to eat and drink normally. Past medical history: Hypertension, hyperlipidemia, bipolar disorder Surgical history: Appendectomy, tubal ligation, tonsillectomy, leg tumor resection Social history: Smokes tobacco, denies alcohol or drugs Medications: Tylenol, aspirin, lisinopril, Prilosec, seroquel Allergies: Elavil, tramadol, BuSpar Related Data Home Medications Medication Instructions Recorded Confirmed quetiapine [Seroquel] 100 mg PO DAILY 07/31/16 05/13/18 aspirin 81 mg PO DAILY #30 tabec 04/28/17 05/12/18 lisinopril [Prinivil] 10 mg PO DAILY #30 tab 04/28/17 05/13/18 omeprazole magnesium [Prilosec OTC] 20 mg PO DAILY@0730 #30 tabcr 04/28/1705/13 ibuprofen 600 mg PO QID PRN #20 tab 01/12/18 05/13/18 acetaminophen [Tylenol] 650 mg PO Q6H PRN PRN #30 tab 04/13/18 05/13/18 amoxicillin-pot clavulanate 1 tab PO BID 10 Days #20 tab 05/13/18 [Augmentin] Previous Rx's Medication Instructions Recorded aspirin 81 mg PO DAILY #30 tabec 04/28/17 lisinopril [Prinivil] 10 mg PO DAILY #30 tab 04/28/17 omeprazole magnesium [Prilosec OTC] 20 mg PO DAILY@0730 #30 tabcr 04/28/17 ibuprofen 600 mg PO QID PRN #20 tab 01/12/18 acetaminophen [Tylenol] 650 mg PO Q6H PRN PRN #30 tab 04/13/18 amoxicillin-pot clavulanate 1 tab PO BID 10 Days #20 tab 05/13/18 [Augmentin] Allergies Allergy/AdvReac Type Severity Reaction Status Date / Time amitriptyline [From Elavil] AdvReac Mild Verified 05/13/18 08:12 tramadol AdvReac Mild Nausea Verified 05/13/18 08:12 buspirone [From BuSpar] AdvReac Verified 05/13/18 08:12 General Stated Complaint: DentalOral GERBER: 4 Review of Systems Review of Systems All systems reviewed & are unremarkable except as noted in HPI and below PFSH Medical History HTN (hypertension) (Chronic) Hypercholesterolemia (Chronic) Insomnia (Chronic) Social History Smoking/Tobacco Use Status: Current every day tobacco type: cigarettes alcohol intake: never substance use type: does not use Surgical History Status post laparoscopic appendectomy (Resolved) Tubal ligation status (Inactive) Exam Const General: cooperative, healthy appearing and no acute distress HENMT Head: normal to inspection Ears: TM's normal bilaterally General nose exam: external nose normal and nares normal Face and sinus: normal facial exam, no erythema, no edema and no fluctuance Mouth: oral mucosae normal Teeth and gingiva: caries, poor dentition and other (Multiple missing teeth) Teeth image: 2 1. Tenderness to palpation of tooth #27 with surrounding mild to moderate edema and erythema. No discrete abscess noted. Throat: posterior oropharynx normal Eyes General: appearance normal, both eyes and all related structures Neck Neck: normal visual inspection, no anterior neck swelling, no tracheal deviation and No submandibular swelling Lymphatic: no lymphedema noted Resp Effort & Inspection: normal respiratory effort and able to speak in complete sentences Cardio Rate: regular rate Skin General skin exam: no rashes or lesions noted Neuro General: alert, awake and oriented x3 Motor: muscle tone normal throughout Extrem General: normal to inspection and full ROM Psych Appearance: grossly normal Affect: normal affect Course Vital Signs Temperature 98.1 F 05/13/18 08:05 Pulse 96 H 05/13/18 08:05 Respiratory Rate 15 11/03/18 08:05 Blood Pressure 155/102 H 05/13/18 08:05 Pulse Oximetry 95 05/13/18 08:05 Temperature 98.1 F 05/13/18 08:05 Temperature Source Temporal Artery Scan 05/13/18 08:05 Pulse 96 H 05/13/18 08:05 Respiratory Rate 15 05/13/18 08:05 Respiratory Effort Non-Labored 05/13/18 08:11 Blood Pressure 155/102 H 05/13/18 08:05 Blood Pressure Position Sitting 05/13/18 08:05 Pulse Oximetry 95 05/13/18 08:05 Oxygen Delivery Method Room Air 05/13/18 08:05 Oxygen Flow Rate 0 05/13/18 08:05 Pain Level 4 05/13/18 08:05
[2018-05-13 08:45] VITALS: BP 146/96; PULSE 88
== END 2018-05-13 08:48 | disposition home or self-care (01) ==
PROVIDERS: Emergency Provider Physician Assistant; PCP Specialist/Technologist Athletic Trainer
DX: K04.7 Periapical abscess without sinus (principal); R68.84 Jaw pain; I10 Essential (primary) hypertension
CPT/HCPCS: 99283

== ENCOUNTER 2018-05-15 14:53 | Outpatient (CLI) | payer OTHER, SELFPAY ==
[2018-05-15 15:27] LABS: HCT 39.5 % (36.0-46.0); HGB 13.3 g/dL (12.0-15.5); Mean Corp. HGB Concentration 33.7 g/dL (32.0-36.0); Mean Corpuscular Hemoglobin 28.8 pg (27.0-33.0); Mean Corpuscular Volume 85.5 fL (80-95); Mean Platelet Volume 9.8 fL (8.0-11.0); Platelet Count 287 x1000/uL (130-400); RBC 4.62 m/cumm (4.00-5.20); White Blood Cell Count 8.15 k/cumm (4.4-10.8)
[2018-05-15 17:19] LABS: Anion Gap 9.4 mmol/L (3-11); BUN 15 mg/dL (7-18); CO2 26.6 mmol/L (21.0-32.0); CREATININE 0.86 mg/dL (0.55-1.02); Calcium 9.1 mg/dL (8.5-10.1); Chloride 102 mmol/L (98-107); Cholesterol 182 mg/dL (50-200); Glucose 93 mg/dL (70-100); HDL Cholesterol 34 mg/dL (40-60); LDL CHOLESTEROL 125 mg/dL (<100); Potassium 4.8 mmol/L (3.5-5.1); Sodium 138 mmol/L (136-145); Triglyceride 112 mg/dL (30-150)
== END 2018-05-15 15:13 ==
PROVIDERS: PCP Specialist/Technologist Athletic Trainer; Visit Provider Specialist/Technologist Athletic Trainer
DX: I10 Essential (primary) hypertension (principal); E78.5 Hyperlipidemia, unspecified; K04.7 Periapical abscess without sinus
CPT/HCPCS: 36415; 80048; 80061; 83721; 85027

== ENCOUNTER 2018-06-02 13:31 | Emergency (ER) | payer OTHER, SELFPAY ==
[2018-06-02 13:35] VITALS: BP 146/77; PULSE 101; RESP 18; TEMP 37.2; O2SAT 95
--- NOTE | 2018-06-02 13:46 | W.ED.GENAD ---
Discharge Plan Disposition Patient Disposition: HOME Condition: Improving Discharge Details Chief Complaint: DentalOral Clinical Impression: Dental infection Primary Care Provider: Villa Saavedra ED Provider: Dandre Wiggins Home Meds and New Rx's Prescriptions: New penicillin V potassium 500 mg tablet 500 mg PO TID 10 Days Qty: 30 RF: 0 No Action aspirin 81 MG tablet,delayed release (DR/EC) 81 mg PO DAILY Qty: 30 RF: 0 lisinopril [Prinivil] 10 MG tablet 10 mg PO DAILY Qty: 30 RF: 0 omeprazole magnesium [Prilosec OTC] 20 MG tablet,delayed release (DR/EC) 20 mg PO DAILY@0730 Qty: 30 RF: 0 quetiapine [Seroquel] 100 MG tablet 100 mg PO DAILY RF: 0 ibuprofen 600 MG tablet 600 mg PO QID PRN (Reason: Pain) Qty: 20 RF: 0 acetaminophen [Tylenol] 325 mg Tablet 650 mg PO Q6H PRN PRNQty: 30 RF: 0 Discharge Instructions Instructions: Dental Abscess (ED) Additional Instructions: Followup with Dentistry as planned. Take penicillin as prescribed. Tylenol and/or Ibuprofen as needed for pain. Medical Decision Making 43-year-old female with recurrent odontogenic infection. She is otherwise well-appearing. She states that she has plans to follow-up with dentistry in the coming month. She does not have any evidence of deep space involvement nor of airway compromise. Declined dental block. We will place on penicillin; she will follow-up with dentistry as planned. She understands return precautions to the ER. HPI General Mode of arrival: ambulatory. Date/Time Provider Initiated Documentation: 06/02/18 13:35. Limitations to Documentation: no limitations. Information obtained by: patient. History of Present Illness 43 year old F presents to the emergency department with the chief complaint of Right lower dental pain, described as moderate and similar to prior episodes, Quality is described as aching, and is localized to the mouth and right. Patient reports no radiation. Patient started experiencing this hour(s) and it has been constant. No relieving factors improve symptom(s), No exacerbating factors reported . Patient notes no other symptoms.. HPI Narrative: 43-year-old female with generally poor dentition and history of recurrent dental infections presents with right lower jaw pain and swelling after she manipulated tooth with some purulent discharge this morning. No change to voice, no change to swallowing, denies a fever. States she has preestablished plan to follow-up with dental care next month Related Data Home Medications Medication Instructions Recorded Confirmed quetiapine [Seroquel] 100 mg PO DAILY 07/31/16 06/02/18 aspirin 81 mg PO DAILY #30 tabec 04/28/17 06/02/18 lisinopril [Prinivil] 10 mg PO DAILY #30 tab 04/28/17 06/02/18 omeprazole magnesium [Prilosec OTC] 20 mg PO DAILY@0730 #30 tabcr 04/28/17 06/02/18 ibuprofen 600 mg PO QID PRN #20 tab 01/12/18 06/02/18 acetaminophen [Tylenol] 650 mg PO Q6H PRN PRN #30 tab 04/13/18 06/02/18 penicillin V potassium 500 mg PO TID 10 Days #30 tab 06/02/18 Previous Rx's Medication Instructions Recorded aspirin 81 mg PO DAILY #30 tabec 04/28/17 lisinopril [Prinivil] 10 mg PO DAILY #30 tab 04/28/17 omeprazole magnesium [Prilosec OTC] 20 mg PO DAILY@0730 #30 tabcr 04/28/17 ibuprofen 600 mg PO QID PRN #20 tab 01/12/18 acetaminophen [Tylenol] 650 mg PO Q6H PRN PRN #30 tab 04/13/18 penicillin V potassium 500 mg PO TID 10 Days #30 tab 06/02/18 Allergies Allergy/AdvReac Type Severity Reaction Status Date / Time amitriptyline [From Elavil] AdvReac Mild Verified 06/02/18 13:41 tramadol AdvReac Mild Nausea Verified 06/02/18 13:41 buspirone [From BuSpar] AdvReac Verified 06/02/18 13:41 General Stated Complaint: DentalOral GERBER: 4 Review of Systems Review of Systems 6 systems reviewed and otherwise neg [facility] Medical History HTN (hypertension) (Chronic) Hypercholesterolemia (Chronic) Insomnia (Chronic) Social History Smoking/Tobacco Use Status: Current every day tobacco type: cigarettes alcohol intake: never substance use type: does not use Surgical History Status post laparoscopic appendectomy (Resolved) Tubal ligation status (Inactive) Exam Narrative Exam Narrative: GEN: awake, alert, oriented 3. Pleasant, well groomed, interactive. HEAD: Normocephalic, atraumatic ENT: Mucous membranes moist, oropharynx diffuse dental caries and fractures and partially edentulous throughout. Right mandibular swelling on the buccal asked and tenderness to percussion. There is no significant lingual swelling EYES: PERRL, EOMI NECK: Full ROM, no JOSH, no menigismus EXT: Full ROM, no edema, no rash Neuro: Grossly normal neurologic exam, conversant, interactive. Psych: Speech fluent, thoughts congruent, affect normal Course Vital Signs Temperature 37.2 C 06/02/18 13:35 Pulse 101 H 06/02/18 13:35 Respiratory Rate 18 06/02/18 13:35 Blood Pressure 146/77 H 06/02/18 13:35 Pulse Oximetry 95 06/02/18 13:35 Temperature 37.2 C 06/02/18 13:35 Temperature Source Temporal Artery Scan 06/02/18 13:35 Pulse 101 H 06/02/18 13:35 Respiratory Rate 18 06/02/18 13:35 Respiratory Effort Non-Labored 06/02/18 13:40 Blood Pressure 146/77 H 06/02/18 13:35 Blood Pressure Position Sitting 06/02/18 13:35 Pulse Oximetry 95 06/02/18 13:35 Oxygen Delivery Method Room Air 06/02/18 13:35 Oxygen Flow Rate 0 06/02/18 13:35 Pain Level 2 06/02/18 13:35
--- NOTE | 2018-06-02 13:50 | ED.GENADUL_ITS ---
Discharge Plan Disposition Patient Disposition: HOME Condition: Improving Discharge Details Chief Complaint: DentalOral Clinical Impression: Dental infection Primary Care Provider: [facility] ED Provider: Dandre Wiggins Home Meds and New Rx's Prescriptions: New penicillin V potassium 500 mg tablet 500 mg PO TID 10 Days Qty: 30 RF: 0 No Action aspirin 81 MG tablet,delayed release (DR/EC) 81 mg PO DAILY Qty: 30 RF: 0 lisinopril [Prinivil] 10 MG tablet 10 mg PO DAILY Qty: 30 RF: 0 omeprazole magnesium [Prilosec OTC] 20 MG tablet,delayed release (DR/EC) 20 mg PO DAILY@0730 Qty: 30 RF: 0 quetiapine [Seroquel] 100 MG tablet 100 mg PO DAILY RF: 0 ibuprofen 600 MG tablet 600 mg PO QID PRN (Reason: Pain) Qty: 20 RF: 0 acetaminophen [Tylenol] 325 mg Tablet 650 mg PO Q6H PRN PRNQty: 30 RF: 0 Discharge Instructions Instructions: Dental Abscess (ED) Additional Instructions: Followup with Dentistry as planned. Take penicillin as prescribed. Tylenol and/or Ibuprofen as needed for pain. Medical Decision Making 43-year-old female with recurrent odontogenic infection. She is otherwise well- appearing. She states that she has plans to follow-up with dentistry in the coming month. She does not have any evidence of deep space involvement nor of airway compromise. Declined dental block. We will place on penicillin; she will follow-up with dentistry as planned. She understands return precautions to the ER. HPI General Mode of arrival: ambulatory . Date/Time Provider Initiated Documentation: 06/02/18 13:35 . Limitations to Documentation: no limitations . Information obtained by: patient . History of Present Illness 43 year old F presents to the emergency department with the chief complaint of Right lower dental pain, described as moderate and similar to prior episodes, Quality is described as aching, and is localized to the mouth and right. Patient reports no radiation. Patient started experiencing this hour(s) and it has been constant. No relieving factors improve symptom(s), No exacerbating factors reported . Patient notes no other symptoms.. HPI Narrative: 43-year-old female with generally poor dentition and history of recurrent dental infections presents with right lower jaw pain and swelling after she manipulated tooth with some purulent discharge this morning. No change to voice, no change to swallowing, denies a fever. States she has preestablished plan to follow-up with dental care next month Related Data Home Medications Medication Instructions Recorded Confirmed quetiapine [Seroquel] 100 mg PO DAILY 07/31/16 06/02/18 aspirin 81 mg PO DAILY #30 tabec 04/28/17 06/02/18 lisinopril [Prinivil] 10 mg PO DAILY #30 tab 04/28/17 06/02/18 omeprazole magnesium [Prilosec OTC] 20 mg PO DAILY@0730 #30 tabcr 04/28/1706/02 ibuprofen 600 mg PO QID PRN #20 tab 01/12/18 06/02/18 acetaminophen [Tylenol] 650 mg PO Q6H PRN PRN #30 tab 04/13/18 06/02/18 penicillin V potassium 500 mg PO TID 10 Days #30 tab 06/02/18 Previous Rx's Medication Instructions Recorded aspirin 81 mg PO DAILY #30 tabec 04/28/17 lisinopril [Prinivil] 10 mg PO DAILY #30 tab 04/28/17 omeprazole magnesium [Prilosec OTC] 20 mg PO DAILY@0730 #30 tabcr 04/28/17 ibuprofen 600 mg PO QID PRN #20 tab 01/12/18 acetaminophen [Tylenol] 650 mg PO Q6H PRN PRN #30 tab 04/13/18 penicillin V potassium 500 mg PO TID 10 Days #30 tab 06/02/18 Allergies Allergy/AdvReac Type Severity Reaction Status Date / Time amitriptyline [From Elavil] AdvReac Mild Verified 06/02/18 13:41 tramadol AdvReac Mild Nausea Verified 06/02/18 13:41 buspirone [From BuSpar] AdvReac Verified 06/02/18 13:41 General Stated Complaint: DentalOral GERBER: 4 Review of Systems Review of Systems 6 systems reviewed and otherwise neg [facility] Medical History HTN (hypertension) (Chronic) Hypercholesterolemia (Chronic) Insomnia (Chronic) Social History Smoking/Tobacco Use Status: Current every day tobacco type: cigarettes alcohol intake: never substance use type: does not use Surgical History Status post laparoscopic appendectomy (Resolved) Tubal ligation status (Inactive) Exam Narrative Exam Narrative: GEN: awake, alert, oriented 3. Pleasant, well groomed, interactive. HEAD: Normocephalic, atraumatic ENT: Mucous membranes moist, oropharynx diffuse dental caries and fractures and partially edentulous throughout. Right mandibular swelling on the buccal asked and tenderness to percussion. There is no significant lingual swelling EYES: PERRL, EOMI NECK: Full ROM, no JOSH, no menigismus EXT: Full ROM, no edema, no rash Neuro: Grossly normal neurologic exam, conversant, interactive. Psych: Speech fluent, thoughts congruent, affect normal Course Vital Signs Temperature 37.2 C 06/02/18 13:35 Pulse 101 H 06/02/18 13:35 Respiratory Rate 18 06/02/18 13:35 Blood Pressure 146/77 H 06/02/18 13:35 Pulse Oximetry 95 06/02/18 13:35 Temperature 37.2 C 06/02/18 13:35 Temperature Source Temporal Artery Scan 06/02/18 13:35 Pulse 101 H 06/02/18 13:35 Respiratory Rate 18 06/02/18 13:35 Respiratory Effort Non-Labored 06/02/18 13:40 Blood Pressure 146/77 H 06/02/18 13:35 Blood Pressure Position Sitting 06/02/18 13:35 Pulse Oximetry 95 06/02/18 13:35 Oxygen Delivery Method Room Air 06/02/18 13:35 Oxygen Flow Rate 0 06/02/18 13:35 Pain Level 2 06/02/18 13:35
== END 2018-06-02 13:55 | disposition home or self-care (01) ==
PROVIDERS: Emergency Provider Emergency Medicine; PCP Specialist/Technologist Athletic Trainer
DX: K04.7 Periapical abscess without sinus (principal); I10 Essential (primary) hypertension
CPT/HCPCS: 99283

== ENCOUNTER 2018-07-14 10:19 | Emergency (ER) | payer OTHER, SELFPAY ==
[2018-07-14 10:40] VITALS: BP 119/72; PULSE 103; RESP 18; TEMP 36.5; O2SAT 98
--- NOTE | 2018-07-14 11:11 | ED.GENADUL_ITS ---
Discharge Plan Disposition Patient Disposition: HOME Condition: Stable Discharge Details Chief Complaint: RespSymp Clinical Impression: Bronchitis Primary Care Provider: None,None ED Provider: Maria Dolores Harvey Home Meds and New Rx's Prescriptions: Continued lisinopril [Prinivil] 10 MG tablet 10 mg PO DAILY Qty: 30 RF: 0 Prilosec OTC 20 MG tablet,delayed release (DR/EC) 20 mg PO DAILY@0730 Qty: 30 RF: 0 quetiapine [Seroquel] 100 MG tablet 100 mg PO DAILY RF: 0 ibuprofen 600 MG tablet 600 mg PO QID PRN (Reason: Pain) Qty: 20 RF: 0 acetaminophen [Tylenol] 325 mg Tablet 650 mg PO Q6H PRN PRNQty: 30 RF: 0 cyclobenzaprine 10 mg Tablet 10 mg PO TID PRNRF: 0 Discharge Instructions Instructions: Azithromycin (By mouth), Acute Bronchitis (ED) Additional Instructions: Please return immediately to the emergency department if you develop any new or worsening symptoms or if you become otherwise concerned. It is extremely important that you make an appointment to be seen by your primary care doctor within the next 1-2 weeks in follow-up this visit. Please call [phone] if you have any difficulty establishing this appointment. Discharge Data Discharge Date/Time-TO BE ENTERED AT DEPARTURE: 07/14/18 14:14 Medical Decision Making Kitty Davis is a 43 y/o woman bipolar, HTN, HLD presenting to the emergency department with 3 other family members with similar symtpoms, Pt is c/o cough and generalized body aches. On exam Pt is well and non-toxic appearing. LCTAB. No tachycardia. Frequent dry cough. Concern for PNA vs influenza vs bronchitis. Exam/hx not c/w metabolic/lyte derangement, other acute life threatening infection, sepsis, ACS, PE. Plan for CXR, flu swab. Pt is a smoker, will plan to treat with azithromycin for bronchitis. Lengthy discussion with Pt re: RTED precautions and importance of outpt f/u with PCP. Pt verbalizes understand of and is amenable to the plan. Medical Records Medical records reviewed: Yes I reviewed the patient's medical records. Imaging Data Radiologic Study: Attestation: I personally reviewed and interpreted this imaging study as follows: Radiologist's impression: PA AND LATERAL CHEST: Comparison 11/07/17. The heart is normal in size. The lungs are clear. The mediastinal structures and pleura appear intact. CONCLUSION: Normal chest. Lab Data Lab results reviewed: Yes I reviewed the patient's lab results. HPI General Mode of arrival: ambulatory . Date/Time Provider Initiated Documentation: 07/14/18 11:09 . Limitations to Documentation: no limitations . Information obtained by: patient, family, RN notes reviewed and old records reviewed . HPI Narrative: Kitty Davis is a 43-year-old woman with a history of bipolar, hypertension, high cholesterol presenting to the emergency department with cough and body aches. Patient is here with 3 family members who are also registered in the emergency department with similar symptoms. They report that symptoms have been being passed between family members in the past week. Patient reports that she has had symptoms for the past 3 days. She reports cough, generalized body aches, intermittent fever that she has not measured with a thermometer, and decreased appetite. She denies shortness of breath, any current pain, vomiting, diarrhea, rash, numbness/tingling/weakness. Related Data Home Medications Medication Instructions Recorded Confirmed quetiapine [Seroquel] 100 mg PO DAILY 07/31/16 07/14/18 Prilosec OTC 20 mg PO DAILY@0730 #30 tabcr 04/28/17 07/14/18 lisinopril [Prinivil] 10 mg PO DAILY #30 tab 04/28/17 07/14/18 ibuprofen 600 mg PO QID PRN #20 tab 01/12/18 07/14/18 acetaminophen [Tylenol] 650 mg PO Q6H PRN PRN #30 tab 04/13/18 07/14/18 cyclobenzaprine 10 mg PO TID PRN 07/14/18 07/14/18 Previous Rx's Medication Instructions Recorded Prilosec OTC 20 mg PO DAILY@0730 #30 tabcr 04/28/17 lisinopril [Prinivil] 10 mg PO DAILY #30 tab 04/28/17 ibuprofen 600 mg PO QID PRN #20 tab 01/12/18 acetaminophen [Tylenol] 650 mg PO Q6H PRN PRN #30 tab 04/13/18 Allergies Allergy/AdvReac Type Severity Reaction Status Date / Time amitriptyline [From Elavil] AdvReac Mild Verified 07/14/18 10:45 tramadol AdvReac Mild Nausea Verified 07/14/18 10:45 buspirone [From BuSpar] AdvReac Verified 07/14/18 10:45 General Stated Complaint: RespSymp GERBER: 3 Review of Systems Review of Systems Constitutional: reports subjective fevers Eyes: denies eye pain ENT: denies facial pain, dental pain, sore throat Cardiovascular: denies chest pain, edema Respiratory: denies SOB, reports cough GI: denies abdominal pain, vomiting, diarrhea : denies flank pain MSK: denies back pain, neck pain, arthralgias, reports generalized myalgias Skin: denies rash Neuro: denies headaches, weakness PFSH Medical History HTN (hypertension) (Chronic) Hypercholesterolemia (Chronic) Insomnia (Chronic) Social History Smoking/Tobacco Use Status: Current every day tobacco type: cigarettes alcohol intake: never substance use type: does not use Exam Narrative Exam Narrative: Constitutional: well and [id number], pleasant, conversing normally HENT: head atraumatic, normocephalic normal inspection, mucous membranes moist Eyes: conjunctiva normal, sclera normal, pupils 3mm b/l Neck: no stridor, normal ROM, trachea midline Resp: normal work of breathing, LCTAB Cardio: normal rate, normal rhythm, no murmur appreciated Skin: warm, dry, normal color, no rash Neuro: alert, not altered, grossly non-focal, normal tone, normal gait Ext: no edema Psych: normal mood, normal affect, normal behavior Course Vital Signs Temperature 36.5 C 07/14/18 10:40 Pulse 103 H 07/14/18 10:40 Respiratory Rate 18 07/14/18 10:40 Blood Pressure 119/72 07/14/18 10:40 Pulse Oximetry 98 07/14/18 10:40 Temperature 36.5 C 07/14/18 10:40 Temperature Source Temporal Artery Scan 07/14/18 10:40 Pulse 103 H 07/14/18 10:40 Respiratory Rate 18 07/14/18 10:40 Respiratory Effort Non-Labored 07/14/18 10:44 Respiratory Depth Normal 07/14/18 10:44 Blood Pressure 119/72 07/14/18 10:40 Blood Pressure Position Sitting 07/14/18 10:40 Pulse Oximetry 98 07/14/18 10:40 Oxygen Delivery Method Room Air 07/14/18 10:40 Oxygen Flow Rate 0 07/14/18 10:40 Pain Level 2 07/14/18 10:40
--- NOTE | 2018-07-14 12:24 | DI.RAD_ITS ---
SYMPTOMS/DIAGNOSIS: COUGH PA AND LATERAL CHEST: Comparison 11/07/17. The heart is normal in size. The lungs are clear. The mediastinal structures and pleura appear intact. CONCLUSION: Normal chest.
[2018-07-14] MEDS: Azithromycin 250 MG TAB 500 MG PO (14:10)
[2018-07-14 14:11] VITALS: BP 121/90; PULSE 115; RESP 16; TEMP 36.5; O2SAT 96
[2018-07-14 14:13] VITALS: BP 121/90; PULSE 115; RESP 16; TEMP 36.5; O2SAT 96
--- NOTE | 2018-07-17 07:43 | CMPROGNOTE_ITS ---
Care Management Progress Note 07/17-Dr. Lauerl Harvey requested assistance with a referral to PCP for establishing care. Patient does not need an ED f/u. [facility] nurse. Referral faxed to [facility] this am.
== END 2018-07-14 14:14 | disposition home or self-care (01) ==
PROVIDERS: Emergency Provider Student in an Organized Health Care Education/Training Program
DX: J20.9 Acute bronchitis, unspecified (principal); I10 Essential (primary) hypertension
CPT/HCPCS: 36415; 87449; 99284; 71046

== ENCOUNTER 2018-08-15 18:43 | Emergency (ER) | payer OTHER, SELFPAY ==
[2018-08-15 18:50] VITALS: BP 141/114; PULSE 102; RESP 28; TEMP 36.6; O2SAT 100
[2018-08-15 18:55] VITALS: RESP 28
--- NOTE | 2018-08-15 19:11 | W.ED.GENAD ---
Discharge Plan Disposition Patient Disposition: HOME Discharge Details Chief Complaint: Anxiety Clinical Impression: Anxiety Primary Care Provider: None,None ED Provider: Hernán Harvey Home Meds and New Rx's Prescriptions: Continued lisinopril [Prinivil] 10 MG tablet 10 mg PO DAILY Qty: 30 RF: 0 Prilosec OTC 20 MG tablet,delayed release (DR/EC) 20 mg PO DAILY@0730 Qty: 30 RF: 0 quetiapine [Seroquel] 100 MG tablet 100 mg PO DAILY RF: 0 ibuprofen 600 MG tablet 600 mg PO QID PRN (Reason: Pain) Qty: 20 RF: 0 acetaminophen [Tylenol] 325 mg Tablet 650 mg PO Q6H PRN PRNQty: 30 RF: 0 cyclobenzaprine 10 mg Tablet 10 mg PO TID PRNRF: 0 Discharge Instructions Instructions: Anxiety (ED) Additional Instructions: Please contact your primary care physician to arrange follow-up. Return to the ER for any worsening or new concerning symptoms. Medical Decision Making 43-year-old female with history of bipolar disorder, anxiety, here with anxiety likely related to recent familial conflict. Patient was given Ativan 1 mg orally and reassessed and noted significant improvement. Plan to discharge the patient with instructions to call PCP for outpatient follow-up. Disposition decision was made weighing the risks and benefits of hospitalization versus outpatient treatment, the risk for further decompensation, and the patient's wishes. The patient was stable and requested discharge. Prior to discharge, my usual and customary return precautions were reviewed with the patient - this included follow-up instructions and reason to return to the emergency department if condition worsens, does not improve as expected, or other new concerns arise. HPI General Mode of arrival: ambulatory. Date/Time Provider Initiated Documentation: 08/15/18 19:07. Limitations to Documentation: no limitations. Information obtained by: patient. HPI Narrative: 43-year-old female here with severe anxiety. Patient notes that she is been feeling quite anxious recently. Significant life stressors including conflict with other family members including her [id number]. Patient notes that she has had anxiety attacks in the past. Last anxiety attack was in 2012. Severe, no modifiers, she is having associated difficulty sleeping. No hallucinations. No thoughts of harming herself or others. Related Data Home Medications Medication Instructions Recorded Confirmed quetiapine [Seroquel] 100 mg PO DAILY 07/31/16 08/15/18 Prilosec OTC 20 mg PO DAILY@0730 #30 tabcr 04/28/17 08/15/18 lisinopril [Prinivil] 10 mg PO DAILY #30 tab 04/28/17 08/15/18 ibuprofen 600 mg PO QID PRN #20 tab 01/12/18 08/15/18 acetaminophen [Tylenol] 650 mg PO Q6H PRN PRN #30 tab 04/13/18 08/15/18 cyclobenzaprine 10 mg PO TID PRN 07/14/18 08/15/18 Previous Rx's Medication Instructions Recorded Prilosec OTC 20 mg PO DAILY@0730 #30 tabcr 04/28/17 lisinopril [Prinivil] 10 mg PO DAILY #30 tab 04/28/17 ibuprofen 600 mg PO QID PRN #20 tab 01/12/18 acetaminophen [Tylenol] 650 mg PO Q6H PRN PRN #30 tab 04/13/18 Allergies Allergy/AdvReac Type Severity Reaction Status Date / Time amitriptyline [From Elavil] AdvReac Mild Verified 08/15/18 18:53 tramadol AdvReac Mild Nausea Verified 08/15/18 18:53 buspirone [From BuSpar] AdvReac Verified 08/15/18 18:53 General Stated Complaint: Anxiety GERBER: 3 Review of Systems Constitutional Denies fever(s) Cardiovascular Denies chest pain and Denies dyspnea Respiratory Denies dyspnea Psychiatric Reports as per [facility] Medical History HTN (hypertension) (Chronic) Hypercholesterolemia (Chronic) Insomnia (Chronic) Surgical History Status post laparoscopic appendectomy (Resolved) Tubal ligation status (Inactive) Social History Smoking/Tobacco Use Status: Current every day tobacco type: cigarettes alcohol intake: never substance use type: does not use Exam Const General: cooperative, well developed and anxious HENMT Head: normocephalic and atraumatic Mouth: moist mucous membranes Eyes Conjunctivae: normal conjunctivae Sclera: normal sclerae EOM: EOM intact bilaterally Neck Neck: trachea midline and supple Resp Auscultation: clear to auscultation bilaterally, no rales, no rhonchi and no wheezes Cardio Jugular venous pressure: no JVD Rate: regular rate and not tachycardic Rhythm: regular rhythm GI Palpation: soft, not firm, no guarding, no masses, not rigid and nontender Skin General skin exam: no rashes or lesions noted Neuro General: alert, awake, oriented x3 and tone normal Extrem General: no edema Psych Appearance: grossly normal Mental Status: mental status grossly normal Speech and Movement: speech and movement normal Mood: anxious mood Affect: anxious affect Course Vital Signs Temperature 36.6 C 08/15/18 18:50 Pulse 102 H 08/15/18 18:50 Respiratory Rate 28 H 08/15/18 18:50 Blood Pressure 141/114 H 08/15/18 18:50 Pulse Oximetry 100 08/15/18 18:50 Temperature 36.6 C 08/15/18 18:50 Temperature Source Skin 08/15/18 18:50 Pulse 102 H 08/15/18 18:50 Respiratory Rate 28 H 08/15/18 18:55 Respiratory Effort 08/15/18 18:55 Respiratory Depth Normal 08/15/18 18:55 Respiratory Pattern Normal 08/15/18 18:55 Blood Pressure 141/114 H 08/15/18 18:50 Blood Pressure Position Sitting 08/15/18 18:50 Pulse Oximetry 100 08/15/18 18:50 Oxygen Delivery Method Room Air 08/15/18 18:50 Oxygen Flow Rate 0 08/15/18 18:50 Pain Level 0 08/15/18 18:50
[2018-08-15] MEDS: LORazepam 1 MG TAB PO (19:13)
--- NOTE | 2018-08-15 19:53 | ED.GENADUL_ITS ---
Discharge Plan Disposition Patient Disposition: HOME Discharge Details Chief Complaint: Anxiety Clinical Impression: Anxiety Primary Care Provider: None,None ED Provider: Hernán Harvey Home Meds and New Rx's Prescriptions: Continued lisinopril [Prinivil] 10 MG tablet 10 mg PO DAILY Qty: 30 RF: 0 Prilosec OTC 20 MG tablet,delayed release (DR/EC) 20 mg PO DAILY@0730 Qty: 30 RF: 0 quetiapine [Seroquel] 100 MG tablet 100 mg PO DAILY RF: 0 ibuprofen 600 MG tablet 600 mg PO QID PRN (Reason: Pain) Qty: 20 RF: 0 acetaminophen [Tylenol] 325 mg Tablet 650 mg PO Q6H PRN PRNQty: 30 RF: 0 cyclobenzaprine 10 mg Tablet 10 mg PO TID PRNRF: 0 Discharge Instructions Instructions: Anxiety (ED) Additional Instructions: Please contact your primary care physician to arrange follow-up. Return to the ER for any worsening or new concerning symptoms. Medical Decision Making 43-year-old female with history of bipolar disorder, anxiety, here with anxiety likely related to recent familial conflict. Patient was given Ativan 1 mg orally and reassessed and noted significant improvement. Plan to discharge the patient with instructions to call PCP for outpatient follow-up. Disposition decision was made weighing the risks and benefits of hospitalization versus outpatient treatment, the risk for further decompensation, and the patient's wishes. The patient was stable and requested discharge. Prior to discharge, my usual and customary return precautions were reviewed with the patient - this included follow-up instructions and reason to return to the emergency department if condition worsens, does not improve as expected, or other new concerns arise. HPI General Mode of arrival: ambulatory . Date/Time Provider Initiated Documentation: 08/15/18 19:07 . Limitations to Documentation: no limitations . Information obtained by: patient . HPI Narrative: 43-year-old female here with severe anxiety. Patient notes that she is been feeling quite anxious recently. Significant life stressors including conflict with other family members including her [id number]. Patient notes that she has had anxiety attacks in the past. Last anxiety attack was in 2012. Severe, no modifiers, she is having associated difficulty sleeping. No hallucinations. No thoughts of harming herself or others. Related Data Home Medications Medication Instructions Recorded Confirmed quetiapine [Seroquel] 100 mg PO DAILY 07/31/16 08/15/18 Prilosec OTC 20 mg PO DAILY@0730 #30 tabcr 04/28/17 08/15/18 lisinopril [Prinivil] 10 mg PO DAILY #30 tab 04/28/17 08/15/18 ibuprofen 600 mg PO QID PRN #20 tab 01/12/18 08/15/18 acetaminophen [Tylenol] 650 mg PO Q6H PRN PRN #30 tab 04/13/18 08/15/18 cyclobenzaprine 10 mg PO TID PRN 07/14/18 08/15/18 Previous Rx's Medication Instructions Recorded Prilosec OTC 20 mg PO DAILY@0730 #30 tabcr 04/28/17 lisinopril [Prinivil] 10 mg PO DAILY #30 tab 04/28/17 ibuprofen 600 mg PO QID PRN #20 tab 01/12/18 acetaminophen [Tylenol] 650 mg PO Q6H PRN PRN #30 tab 04/13/18 Allergies Allergy/AdvReac Type Severity Reaction Status Date / Time amitriptyline [From Elavil] AdvReac Mild Verified 08/15/18 18:53 tramadol AdvReac Mild Nausea Verified 08/15/18 18:53 buspirone [From BuSpar] AdvReac Verified 08/15/18 18:53 General Stated Complaint: Anxiety GERBER: 3 Review of Systems Constitutional Denies fever(s) Cardiovascular Denies chest pain and Denies dyspnea Respiratory Denies dyspnea Psychiatric Reports as per [facility] Medical History HTN (hypertension) (Chronic) Hypercholesterolemia (Chronic) Insomnia (Chronic) Surgical History Status post laparoscopic appendectomy (Resolved) Tubal ligation status (Inactive) Social History Smoking/Tobacco Use Status: Current every day tobacco type: cigarettes alcohol intake: never substance use type: does not use Exam Const General: cooperative, well developed and anxious HENMT Head: normocephalic and atraumatic Mouth: moist mucous membranes Eyes Conjunctivae: normal conjunctivae Sclera: normal sclerae EOM: EOM intact bilaterally Neck Neck: trachea midline and supple Resp Auscultation: clear to auscultation bilaterally, no rales, no rhonchi and no wheezes Cardio Jugular venous pressure: no JVD Rate: regular rate and not tachycardic Rhythm: regular rhythm GI Palpation: soft, not firm, no guarding, no masses, not rigid and nontender Skin General skin exam: no rashes or lesions noted Neuro General: alert, awake, oriented x3 and tone normal Extrem General: no edema Psych Appearance: grossly normal Mental Status: mental status grossly normal Speech and Movement: speech and movement normal Mood: anxious mood Affect: anxious affect Course Vital Signs Temperature 36.6 C 08/15/18 18:50 Pulse 102 H 08/15/18 18:50 Respiratory Rate 28 H 08/15/18 18:50 Blood Pressure 141/114 H 08/15/18 18:50 Pulse Oximetry 100 08/15/18 18:50 Temperature 36.6 C 08/15/18 18:50 Temperature Source Skin 08/15/18 18:50 Pulse 102 H 08/15/18 18:50 Respiratory Rate 28 H 08/15/18 18:55 Respiratory Effort 08/15/18 18:55 Respiratory Depth Normal 08/15/18 18:55 Respiratory Pattern Normal 08/15/18 18:55 Blood Pressure 141/114 H 08/15/18 18:50 Blood Pressure Position Sitting 08/15/18 18:50 Pulse Oximetry 100 08/15/18 18:50 Oxygen Delivery Method Room Air 08/15/18 18:50 Oxygen Flow Rate 0 08/15/18 18:50 Pain Level 0 08/15/18 18:50
[2018-08-15 19:55] VITALS: BP 124/92; PULSE 96; RESP 22; TEMP 37; O2SAT 99
== END 2018-08-15 20:01 | disposition home or self-care (01) ==
PROVIDERS: Emergency Provider Student in an Organized Health Care Education/Training Program
DX: F41.9 Anxiety disorder, unspecified (principal); Z63.8 Other specified problems related to primary support group; F31.9 Bipolar disorder, unspecified; I10 Essential (primary) hypertension
CPT/HCPCS: 99282

== ENCOUNTER 2019-03-24 11:40 | Emergency (ER) | payer OTHER, SELFPAY ==
[2019-03-24 11:44] VITALS: BP 144/102; PULSE 94; RESP 22; TEMP 36.7; O2SAT 99
[2019-03-24 11:58] VITALS: RESP 16
--- NOTE | 2019-03-24 11:59 | NUR.NOTE ---
Nursing Note: pt resting in stretcher. No signs of distress. pt states that she has had blurred vision since awaking this morning. Pt denies headache. Denies any other symptoms. pt states that her baseline vision is 20/20
--- NOTE | 2019-03-24 12:05 | W.ED.GENAD ---
Discharge Plan Disposition Patient Disposition: HOME Condition: Improving Discharge Details Chief Complaint: GenMedical Clinical Impression: Blurred vision Primary Care Provider: Hema Stafford ED Provider: Megan Mills Home Meds and New Rx's Prescriptions: Continued cyclobenzaprine 10 mg tablet 10 mg PO TID PRN (Reason: muscle spasm) Qty: 90 RF: 0 pravastatin 20 mg tablet 20 mg PO DAILY Qty: 90 RF: 3 lisinopril [Prinivil] 10 MG tablet 10 mg PO DAILY Qty: 30 RF: 0 Prilosec OTC 20 MG tablet,delayed release (DR/EC) 20 mg PO DAILY@0730 Qty: 30 RF: 0 quetiapine [Seroquel] 100 MG tablet 100 mg PO DAILY RF: 0 ibuprofen 600 MG tablet 600 mg PO QID PRN (Reason: Pain) Qty: 20 RF: 0 acetaminophen [Tylenol] 325 mg Tablet 650 mg PO Q6H PRN PRNQty: 30 RF: 0 Discharge Instructions Instructions: Blurred Vision (ED) Additional Instructions: Drink plenty of fluids and get plenty of rest. Call your primary care doctor tomorrow to schedule a follow-up appointment for reevaluation and for referral for outpatient MRI if symptoms persist or worsen. Call your email producer to schedule a follow-up appointment for eye exam. Return immediately to the emergency department with any worsening or new concerning symptoms. Discharge Data Discharge Date/Time-TO BE ENTERED AT DEPARTURE: 03/24/19 15:41 Discharge Physician: Megan Mills Medical Decision Making 44-year-old female with a history of anxiety, depression, hypertension, hyperlipidemia, Agoraphobia who presents with bilateral blurry vision since this morning. Denies eye pain, fever, neck pain, headache, vomiting, contacts, glasses, injury. OD 20/50, OS 20/50, OU 20/30. Patient states she is normally 20/20. No acute findings on exam. She appears nontoxic. No focal deficits. Normal funduscopic exam. PERRLA. EOMI. Differential diagnosis includes acute CVA, carotid dissection, optic nerve abnormality, electrolyte abnormality, anxiety, conversion disorder. Will place an IV, give bolus IV fluids, screening labs, CT head. She has a history of tubal ligation and denies chance of . 1300 --labs reviewed and unremarkable. Ct head negative. Will obtain CTA head/neck. 1430 -- cta head and neck note plaque at carotid bifircations R>L. D/w neurology Dr. Carrasquillo who reviewed CT's and would be mainly concerned about occipital cva which pt does not have - he does not agree with the extent of R stenosis on ct per vrad read. He states this does not appear consistent with an acute neurological cause and would recommend an outpatient eye exam and MRI brain if symptoms persist or worsen. Discussed with patient that we could consider sending her to [facility] for MRI at this time but she would rather go home and follow-up as outpatient. Patient states she feels better and would like to go home. Her recheck visual acuity is improved - OS and OD 20/40 and OU 20/30. She is advised to follow-up with optometry for eye exam, and with her primary care doctor for reevaluation and for referral for outpatient MRI if her symptoms do not improve or worsen. She is advised to return here immediately with any concerns. Medical Records Medical records reviewed: Yes I reviewed the patient's medical records. Imaging Data Radiologic Study: Radiologist's impression: CT Head Without Contrast EXAM DATE/TIME: 03/24/2019 12:08 PM CLINICAL HISTORY: 44 years old, female; Dizziness TECHNIQUE: Imaging protocol: Computed tomography of the head without contrast. COMPARISON: No relevant prior studies available. FINDINGS: Brain: Normal. No hemorrhage. Unremarkable white matter. No mass effect. Ventricles: Normal. No ventriculomegaly. Bones/joints: Unremarkable. No acute fracture. Sinuses: Visualized sinuses are unremarkable. No fluid levels. Mastoid air cells: Visualized mastoid air cells are well aerated. Soft tissues: Unremarkable. IMPRESSION: No acute intracranial abnormality. CT Angiography Head With Contrast EXAM DATE/TIME: 03/24/2019 1:08 PM CLINICAL HISTORY: 44 years old, female; Visual disturbance; Type not specified; Patient HX: Bilateral blurry vision, since this morning, no headache, no trauma. TECHNIQUE: Imaging protocol: Computed tomography angiography of the head with intravenous contrast. 3D rendering: MIP reconstructed images were created and reviewed. Contrast material: OMNIPAQUE 350; Contrast volume: 85 ml; Contrast route: IV; COMPARISON: CT HEAD WO 03/24/2019 12:34 PM FINDINGS: Images are mildly degraded by patient motion and venous contamination. Relatively symmetric flow is seen in the intracranial ICAs. Ophthalmic artery origins are identified bilaterally. A1 segments are present bilaterally. Flow is seen distally in both anterior cerebral arteries. There is no high-grade M1 segment stenosis and symmetric flow is seen distally in the MCAs. Vertebral basilar junction is patent bilaterally. PICA origins are identified. Flow is maintained throughout the basilar artery. Superior cerebellar artery origins are identified. P1 segments are present and flow is seen distally in both outreach manager. There is no high-grade stenosis, no large intraluminal filling defect or intravascular thrombus is identified. No large aneurysm is identified. IMPRESSION: Exam mildly degraded by motion, venous contamination. No significant intracranial vascular abnormality If further evaluation for recent, acute or subacute ischemia as indicated MR correlation recommended CT Angiography Neck With Contrast EXAM DATE/TIME: 03/24/2019 1:08 PM CLINICAL HISTORY: 44 years old, female; Visual disturbance; Type not specified; Patient HX: Bilateral blurry vision, since this morning, no headache, no trauma. TECHNIQUE: Imaging protocol: Computed tomographic angiography images of the neck with intravenous contrast using CT angiography protocol. 3D rendering: MIP reconstructed images were created and reviewed. COMPARISON: CT HEAD WO 03/24/2019 12:34 PM FINDINGS: Exam mildly degraded by patient motion images are also somewhat degraded by venous contamination. VASCULATURE: CT angiography of the aortic arch demonstrates that the origin of the brachiocephalic, left common carotid artery left subclavian artery are patent. Relatively symmetric flow is seen distally in the subclavian arteries. Vertebral arteries are identified bilaterally. The proximal left vertebral artery/left vertebral artery origin is not well-visualized due to motion artifact. However both vertebral arteries are patent and flow is maintained throughout the cervical vertebral arteries. The vertebrobasilar junction is patent bilaterally. There is no evidence of a hemodynamically significant stenosis of either common carotid artery. Evaluation of the proximal ICAs is somewhat limited due to to patient motion but there is apparent narrowing of the proximal right ICA. Degree of stenosis does not appear greater than 50%. On the left, there is mild plaque involving the proximal left ICA but there is no evidence of hemodynamically significant stenosis. Flow is maintained throughout the cervical vertebral arteries. There is no intraluminal filling defect, intravascular thrombus nor evidence of acute dissection NECK: Bones/joints: There is reversal of the cervical lordosis which may be positional or due to spasm. There is no evidence of an acute fracture. There is no decrease of vertebral body height. There is no acute or destructive bony abnormality. Soft tissues: There is no evidence of a discrete soft tissue mass in the neck. There are small shotty bilateral cervical nodes likely reactive adenopathy. No significant consolidation is identified at the lung apices. IMPRESSION: Exam degraded by patient motion, there is also some venous contamination. There is some plaque at the carotid bifurcations with narrowing of the proximal ICAs right greater than left the degree of stenosis does not appear greater than 50%. Lab Data Lab results reviewed: Yes I reviewed the patient's lab results. Labs: Laboratory Tests Range/Units 03/24/19 03/24/19 12:16 12:16 WBC (4.4-10.8) k/cumm 7.61 RBC (4.00-5.20) m/cumm 4.84 Hgb (12.0-15.5) g/dL 14.0 Hct (36.0-46.0) % 40.7 MCV (80-95) fL 84.1 MCH (27.0-33.0) pg 28.9 MCHC (32.0-36.0) g/dL 34.4 RDW (11.7-14.6) % 12.7 Plt Count (130-400) x1000/uL 289 MPV (8.0-11.0) fL 9.9 Immature Gran % 0.4 Neutrophils % 64.0 Lymphocytes % 24.8 Monocytes % 7.2 Eosinophils % 3.2 Basophils % 0.4 Absolute Neutrophils (1.2-6.7) k/cumm 4.87 Absolute Lymphocytes (1.2-3.4) k/cumm 1.89 Absolute Monocytes (0.11-0.7) k/cumm 0.55 Absolute Eosinophils (0.0-0.7) k/cumm 0.24 Absolute Basophils (0.0-0.2) k/cumm 0.03 Sodium (136-145) mmol/L 137 Potassium (3.5-5.1) mmol/L 4.2 Chloride (98-107) mmol/L 103 Carbon Dioxide (21.0-32.0) mmol/L 27.0 Anion Gap (3-11) mmol/L 7.0 BUN (7-18) mg/dL 9 Creatinine (0.55-1.02) mg/dL 0.91 Estimated GFR/1.73 m2 (mL/min/1.73m2) >= 60.00 Glucose (70-100) mg/dL 82 Calcium (8.5-10.1) mg/dL 8.2 L Magnesium (1.8-2.4) mg/dL 2.1 Total Bilirubin (0.2-1.0) mg/dL 0.2 AST (15-37) U/L 7 L ALT (14-59) U/L 21 Alkaline Phosphatase (46-116) U/L 97 Troponin I (0.00-0.06) ng/mL < 0.05 Total Protein (6.4-8.2) g/dL 7.3 Albumin (3.4-5.0) g/dL 3.7 HPI General Mode of arrival: ambulatory. Date/Time Provider Initiated Documentation: 03/24/19 11:46. Limitations to Documentation: no limitations. Information obtained by: patient. HPI Narrative: Patient is a 44-year-old female with a history of anxiety, depression, fibromyalgia, PTSD, hypertension, hyperlipidemia, agoraphobia who presents with bilateral blurry vision since this morning. She states she awoke and when she looked at her phone the words were blurry. She denies seeing flashes of lights or spots. She states she feels she is having more difficulty with seeing objects in the distance. She denies any recent eye exam. She states she thinks her vision is 20/20 but she is unsure. She denies eye pain, fever, neck pain, headache, vomiting, contacts, glasses, recent injury. Related Data Home Medications Medication Instructions Recorded Confirmed quetiapine [Seroquel] 100 mg PO DAILY 07/31/16 03/24/19 Prilosec OTC 20 mg PO DAILY@0730 #30 tabcr 04/28/17 03/24/19 lisinopril [Prinivil] 10 mg PO DAILY #30 tab 04/28/17 03/24/19 ibuprofen 600 mg PO QID PRN #20 tab 01/12/18 03/24/19 acetaminophen [Tylenol] 650 mg PO Q6H PRN PRN #30 tab 04/13/18 03/24/19 cyclobenzaprine 10 mg tablet 10 mg PO TID PRN #90 tab 03/13/19 03/24/19 pravastatin 20 mg tablet 20 mg PO DAILY #90 tab 03/13/19 03/24/19 Previous Rx's Medication Instructions Recorded Prilosec OTC 20 mg PO DAILY@0730 #30 tabcr 04/28/17 lisinopril [Prinivil] 10 mg PO DAILY #30 tab 04/28/17 ibuprofen 600 mg PO QID PRN #20 tab 01/12/18 acetaminophen [Tylenol] 650 mg PO Q6H PRN PRN #30 tab 04/13/18 cyclobenzaprine 10 mg tablet 10 mg PO TID PRN #90 tab 03/13/19 pravastatin 20 mg tablet 20 mg PO DAILY #90 tab 03/13/19 Allergies Allergy/AdvReac Type Severity Reaction Status Date / Time trazodone Allergy Severe sleep walk Verified 03/24/19 11:46 buspirone [From BuSpar] AdvReac Severe night Verified 03/24/19 11:46 terros amitriptyline [From Elavil] AdvReac Mild walks Verified 03/24/19 11:46 like a drunk tramadol AdvReac Mild Nausea Verified 03/24/19 11:46 General Stated Complaint: GenMedical GERBER: 3 Review of Systems Review of Systems ROS Unobtainable: All systems reviewed & are unremarkable except as noted in HPI and below Constitutional Constitutional: Reports as per HPI, Denies chills and Denies fever(s) Eyes Eyes: Reports blurry vision ENT Ears, Nose, Mouth, and Throat: Denies dizziness, Denies sore throat and Denies throat swelling Cardiovascular Cardiovascular: Denies chest pain and Denies dyspnea Respiratory Respiratory: Denies cough and Denies dyspnea Gastrointestinal Gastrointestinal: Denies abdominal pain, Denies diarrhea and Denies vomiting Genitourinary Genitourinary: Denies hematuria and Denies dysuria Musculoskeletal Musculoskeletal: Denies back pain and Denies numbness Integumentary/Breasts Skin/Breast: Denies lesions and Denies rash Neurologic Neurologic: Denies dizziness, Denies focal weakness and Denies numbness Allergic/Immunologic Allergic/Immunologic: Denies throat swelling [facility] Medical History Acute appendicitis with generalized peritonitis (Acute) Anxiety (Chronic) Arrhythmia (Acute) Asthma (Chronic) Chronic pain (Chronic) Depression (Chronic) Fibromyalgia (Acute) HTN (hypertension) (Chronic) Hypercholesterolemia (Chronic) Insomnia (Chronic) Lumbar spinal stenosis (Acute) Osteoarthritis of multiple joints (Acute) PTSD (post-traumatic stress disorder) (Acute) Tobacco use disorder (Acute) Surgical History History of removal of cyst (Acute) Ear and Nose History of tonsillectomy and adenoidectomy (Acute) Status post laparoscopic appendectomy (Resolved) Tubal ligation status (Inactive) Family History Mother Hypertension Diabetes Heart disease Colon cancer Stroke Maternal Grandmother Brain cancer Colon cancer Maternal Grandfather Heart disease Social History Smoking/Tobacco Use Status: Current every day Tobacco Type: cigarettes Tobacco: How many years used: 28 Alcohol Intake: never Drug use: Never Substance use type: does not use Household members: spouse Housing: house Number of Children: 2 number of grandchildren: 2 Communication Needs: None Education Level: high school Details: some college Do you need help understanding health information?: Never Sexually active: Yes Do you think of yourself as: Decline to Provide Current gender identity: female What is your relationship status?: Panel score (0-1 are the most socially isolated patients): 1 What type of physical activity do you participate in: none Seatbelt use: always Drive intox or ride w/intox dolly driver: No Working smoke detector in home: Yes Fire extinguisher in home: Yes Carbon monox detector in home: Yes Firearms in home: Yes Firearms unloaded and locked: No Do you feel safe at home: Yes Do you feel safe in your relationship?: Yes Exam Const General: cooperative, healthy appearing and no acute distress HENMT Head: normal to inspection Ears: hearing grossly normal bilaterally, external ears normal and TM's normal bilaterally General nose exam: external nose normal Face and sinus: normal facial exam Mouth: oral mucosae normal Throat: posterior oropharynx normal Eyes General: appearance normal, both eyes and all related structures Periorbital: periorbital findings normal Eyelids: eyelids normal Conjunctivae: conjunctivae normal Pupils: PERRL EOM: EOM intact bilaterally Direct ophthalmoscopy: no papilledema Neck Neck: normal visual inspection and No submandibular swelling Lymphatic: no lymphadenopathy noted Chest Chest: normal inspection of the chest and no tenderness Resp Effort & Inspection: normal respiratory effort and able to speak in complete sentences Auscultation: clear to auscultation bilaterally Cardio Rate: regular rate Rhythm: regular rhythm Skin General skin exam: no rashes or lesions noted Neuro General: alert, awake and oriented x3 Cranial Nerves: CN's II-XI intact bilaterally Cognition: normal cognition Speech: speech normal Motor: muscle tone normal throughout and strength 5/5 throughout Sensory Exam: no sensory deficits noted Extrem General: normal to inspection, full ROM, normal capillary refill, no calf tenderness bilaterally and no edema Psych Appearance: grossly normal Mental Status: mental status grossly normal Speech and Movement: speech and movement normal Affect: normal affect Course Vital Signs Vital signs: Vital Signs Temperature 98.1 F 03/24/19 11:44 Pulse 94 H 03/24/19 11:44 Respiratory Rate 22 03/24/19 11:44 Blood Pressure 144/102 H 03/24/19 11:44 Pulse Oximetry 99 03/24/19 11:44 Temperature 98.1 F 03/24/19 11:44 Temperature Source Tympanic 03/24/19 11:44 Pulse 94 H 03/24/19 11:44 Respiratory Rate 16 03/24/19 11:58 Respiratory Effort Non-Labored 03/24/19 11:58 Respiratory Depth Normal 03/24/19 11:58 Respiratory Pattern Normal 03/24/19 11:58 Blood Pressure 144/102 H 03/24/19 11:44 Blood Pressure Position Sitting 03/24/19 11:44 Pulse Oximetry 99 03/24/19 11:44 Oxygen Delivery Method Room Air 03/24/19 11:44 Oxygen Flow Rate 0 03/24/19 11:44 Pain Level 0 03/24/19 11:44
--- NOTE | 2019-03-24 12:06 | DI.CT_ITS ---
SYMPTOM/DIAGNOSIS: BILAT BLURRY VISION, ? ACUTE CVA NONCONTRAST HEAD CT: There is no evidence of an intra/extra-axial hemorrhage or mass. The ventricles are unremarkable. There is no skull fracture. The sinuses are intact. There is no evidence of a mastoid effusion. The soft tissues are unremarkable. SUMMARY: No acute intracranial abnormality is identified. CTA BRAIN AND NECK: CT angiography was performed with multi slice acquisition and multi planar and 3D reconstruction. The study was carried out with an intravenous administration of 85 cc's of Omnipaque 350. The images are somewhat degraded by patient motion. BRAIN: Symmetrical flow is seen in the ICA. The origin of the thalamic artery is demonstrated bilaterally. A1 segments are present bilaterally, flow is seen distally in both the anterior cerebral arteries. There is nothing to suggest a high grade M1 segment stenosis and symmetrical flow is noted in the distal portion of the MCA's and vertebral basilar junction bilaterally. The PICA origins are identified. Flow is maintained throughout the basilar artery. The superior cerebellar artery origins are identified. The P1 segments are present and flow is seen distally in the COMPUTER SYSTEMS ADMINISTRATOR's. There is no evidence of a high grade stenosis. No large intraluminal filling defect or intravascular thrombus is identified. There is no evidence of a large aneurysm. SUMMARY: No significant intracranial vascular abnormality is demonstrated. NECK: The aortic arch is intact. The origins of the brachiocephalic, left common carotid artery and left subclavian artery are patent. There is relatively symmetrical flow seen distally in the subclavian arteries. The vertebral arteries are intact. The proximal left vertebral artery and left vertebral artery origin is not well seen due to patient motion however, both vertebral arteries are patent and flow is maintained throughout the cervical vertebral arteries. The vertebrobasilar junction is patent bilaterally. There is no evidence of hemodynamically significant stenosis in either common carotid artery. The evaluation of the proximal ICA's is somewhat limited due to patient motion but there is apparent narrowing of the proximal right ICA. The degree of stenosis does not appear to be greater than 50%. On the left, there is mild plaque formation involving the proximal left ICA but there is no evidence of hemodynamically significant stenosis. Flow is maintained throughout the cervical vertebral arteries. There is no intraluminal filling defect, intravascular thrombus or evidence of an acute dissection. Evaluation of the bony structures reveals reversal of the normal cervical lordosis which could be on the basis of positioning or cervical spasm. There is no evidence of an acute fracture or subluxation. No destructive bony lesion is apparent. No soft tissue mass is identified in the neck. There is no evidence of lymphadenopathy. The lung apices appear intact. SUMMARY: The exam is degraded by patient motion and venous contamination. There is some plaque in the carotid arteries bilaterally and narrowing of the proximal right ICA's, right greater than left is demonstrated. The degree of stenosis is less than 50%.
[2019-03-24 12:26] LABS: Abs Immature Grans 0.03 k/cumm (0.0-0.09); Absolute Basophil Count 0.03 k/cumm (0.0-0.2); Absolute Eosinophil Count 0.24 k/cumm (0.0-0.7); Absolute Lymphocyte Count 1.89 k/cumm (1.2-3.4); Absolute Monocyte Count 0.55 k/cumm (0.11-0.7); Absolute Neutrophil Count 4.87 k/cumm (1.2-6.7); Basophils % 0.4; Eosinophils % 3.2; HCT 40.7 % (36.0-46.0); Immature Grans % 0.4; Lymphocytes % 24.8; Mean Corp. HGB Concentration 34.4 g/dL (32.0-36.0); Mean Corpuscular Hemoglobin 28.9 pg (27.0-33.0); Mean Corpuscular Volume 84.1 fL (80-95); Mean Platelet Volume 9.9 fL (8.0-11.0); Monocytes % 7.2; Platelet Count 289 x1000/uL (130-400); RBC 4.84 m/cumm (4.00-5.20); RBC Distribution Width 12.7 % (11.7-14.6); White Blood Cell Count 7.61 k/cumm (4.4-10.8)
[2019-03-24 12:39] LABS: ALT 21 U/L (14-59); AST 7 U/L (15-37); Albumin 3.7 g/dL (3.4-5.0); Alkaline Phosphatase 97 U/L (46-116); BUN 9 mg/dL (7-18); Bilirubin, Total 0.2 mg/dL (0.2-1.0); CREATININE 0.91 mg/dL (0.55-1.02); Calcium 8.2 mg/dL (8.5-10.1); Chloride 103 mmol/L (98-107); Glucose 82 mg/dL (70-100); Magnesium 2.1 mg/dL (1.8-2.4); Potassium 4.2 mmol/L (3.5-5.1); Sodium 137 mmol/L (136-145); Total Protein 7.3 g/dL (6.4-8.2)
[2019-03-24 12:40] LABS: Troponin I < 0.05 ng/mL (0.00-0.06)
--- NOTE | 2019-03-24 12:48 | DI.VRAD_ITS ---
EXAM: CT Head Without Contrast EXAM DATE/TIME: 03/24/2019 12:08 PM CLINICAL HISTORY: 44 years old, female; Dizziness TECHNIQUE: Imaging protocol: Computed tomography of the head without contrast. COMPARISON: No relevant prior studies available. FINDINGS: Brain: Normal. No hemorrhage. Unremarkable white matter. No mass effect. Ventricles: Normal. No ventriculomegaly. Bones/joints: Unremarkable. No acute fracture. Sinuses: Visualized sinuses are unremarkable. No fluid levels. Mastoid air cells: Visualized mastoid air cells are well aerated. Soft tissues: Unremarkable. IMPRESSION: No acute intracranial abnormality. Dictated and Authenticated by: Demi Webster MD. Ordering:DEVORAH Guzman MD
[2019-03-24] MEDS: Normal Saline 1,000 ML 1000 ML IV (12:50)
--- NOTE | 2019-03-24 13:27 | NUR.NOTE ---
Nursing Note: pt to CTA
[2019-03-24] MEDS: Omnipaque 350 MG/ML 100 ML BTL IJ (13:35)
[2019-03-24 13:56] VITALS: RESP 17
--- NOTE | 2019-03-24 14:12 | DI.VRAD_ITS ---
EXAM: CT Angiography Head With Contrast EXAM DATE/TIME: 03/24/2019 1:08 PM CLINICAL HISTORY: 44 years old, female; Visual disturbance; Type not specified; Patient HX: Bilateral blurry vision, since this morning, no headache, no trauma. TECHNIQUE: Imaging protocol: Computed tomography angiography of the head with intravenous contrast. 3D rendering: MIP reconstructed images were created and reviewed. Contrast material: OMNIPAQUE 350; Contrast volume: 85 ml; Contrast route: IV; COMPARISON: CT HEAD WO 03/24/2019 12:34 PM FINDINGS: Images are mildly degraded by patient motion and venous contamination. Relatively symmetric flow is seen in the intracranial ICAs. Ophthalmic artery origins are identified bilaterally. A1 segments are present bilaterally. Flow is seen distally in both anterior cerebral arteries. There is no high-grade M1 segment stenosis and symmetric flow is seen distally in the MCAs. Vertebral basilar junction is patent bilaterally. PICA origins are identified. Flow is maintained throughout the basilar artery. Superior cerebellar artery origins are identified. P1 segments are present and flow is seen distally in both top frame fitter. There is no high-grade stenosis, no large intraluminal filling defect or intravascular thrombus is identified. No large aneurysm is identified. IMPRESSION: Exam mildly degraded by motion, venous contamination. No significant intracranial vascular abnormality If further evaluation for recent, acute or subacute ischemia as indicated MR correlation recommended EXAM: CT Angiography Neck With Contrast EXAM DATE/TIME: 03/24/2019 1:08 PM CLINICAL HISTORY: 44 years old, female; Visual disturbance; Type not specified; Patient HX: Bilateral blurry vision, since this morning, no headache, no trauma. TECHNIQUE: Imaging protocol: Computed tomographic angiography images of the neck with intravenous contrast using CT angiography protocol. 3D rendering: MIP reconstructed images were created and reviewed. COMPARISON: CT HEAD WO 03/24/2019 12:34 PM FINDINGS: Exam mildly degraded by patient motion images are also somewhat degraded by venous contamination. VASCULATURE: CT angiography of the aortic arch demonstrates that the origin of the brachiocephalic, left common carotid artery left subclavian artery are patent. Relatively symmetric flow is seen distally in the subclavian arteries. Vertebral arteries are identified bilaterally. The proximal left vertebral artery/left vertebral artery origin is not well-visualized due to motion artifact. However both vertebral arteries are patent and flow is maintained throughout the cervical vertebral arteries. The vertebrobasilar junction is patent bilaterally. There is no evidence of a hemodynamically significant stenosis of either common carotid artery. Evaluation of the proximal ICAs is somewhat limited due to to patient motion but there is apparent narrowing of the proximal right ICA. Degree of stenosis does not appear greater than 50%. On the left, there is mild plaque involving the proximal left ICA but there is no evidence of hemodynamically significant stenosis. Flow is maintained throughout the cervical vertebral arteries. There is no intraluminal filling defect, intravascular thrombus nor evidence of acute dissection NECK: Bones/joints: There is reversal of the cervical lordosis which may be positional or due to spasm. There is no evidence of an acute fracture. There is no decrease of vertebral body height. There is no acute or destructive bony abnormality. Soft tissues: There is no evidence of a discrete soft tissue mass in the neck. There are small shotty bilateral cervical nodes likely reactive adenopathy. No significant consolidation is identified at the lung apices. IMPRESSION: Exam degraded by patient motion, there is also some venous contamination. There is some plaque at the carotid bifurcations with narrowing of the proximal ICAs right greater than left the degree of stenosis does not appear greater than 50%. COMMENT: Reference per NASCET criteria for degree of stenosis: Mild: less than 50% stenosis. Moderate: 50-69% stenosis. Severe: 70-94% stenosis. Near occlusion: 95-99% stenosis. Dictated and Authenticated by: Rajni Hoff MD. Ordering:DEVORAH Guzman MD
[2019-03-24 15:37] VITALS: BP 125/65; PULSE 90; RESP 16; TEMP 36.9; O2SAT 100
== END 2019-03-24 15:41 | disposition home or self-care (01) ==
PROVIDERS: Emergency Provider Physician Assistant; PCP Family Medicine
DX: H53.8 Other visual disturbances (principal); F41.8 Other specified anxiety disorders; I10 Essential (primary) hypertension
CPT/HCPCS: 70496; 70498; 80053; 96360; 99285; 70450; 83735; 84484; 85025; J3490

== ENCOUNTER 2019-03-27 15:42 | Outpatient (REF) | payer OTHER, SELFPAY ==
[2019-03-27 18:54] LABS: TSH (W/Ref FT4) 2.78 uIU/mL (0.36-3.74)
== END 2019-03-27 16:02 ==
LOC: LBN 15:42
PROVIDERS: PCP Family Medicine; Visit Provider Family Medicine
DX: H53.8 Other visual disturbances (principal)
CPT/HCPCS: 84443

== ENCOUNTER 2019-07-04 15:45 | Emergency (ER) | payer OTHER, SELFPAY ==
[2019-07-04 15:50] VITALS: BP 132/87; PULSE 95; RESP 18; TEMP 36.7; O2SAT 99
--- NOTE | 2019-07-04 16:14 | W.ED.GENAD ---
Discharge Plan Disposition Patient Disposition: HOME Condition: Good Discharge Details Chief Complaint: Nk/Back Pain Clinical Impression: Back spasm Primary Care Provider: Hema Stafford ED Provider: Hanna Varma Home Meds and New Rx's Prescriptions: New diazepam [Valium] 5 mg tablet 5 mg PO TID PRN (Reason: muscle spasm) Qty: 6 RF: 0 prednisone 20 mg tablet 40 mg PO DAILY Qty: 6 RF: 0 Discontinued cyclobenzaprine 10 mg tablet 10 mg PO TID PRN (Reason: muscle spasm) Qty: 90 RF: 2 ibuprofen 600 MG tablet 600 mg PO QID PRN (Reason: Pain) Qty: 20 RF: 0 No Action pravastatin 20 mg tablet 20 mg PO DAILY Qty: 90 RF: 3 lisinopril [Prinivil] 10 mg tablet 10 mg PO DAILY Qty: 90 RF: 3 Prilosec OTC 20 mg tablet,delayed release (DR/EC) 20 mg PO DAILY@0730 Qty: 90 RF: 3 quetiapine [Seroquel] 100 MG tablet 100 mg PO DAILY RF: 0 acetaminophen [Tylenol] 325 mg Tablet 650 mg PO Q6H PRN PRNQty: 30 RF: 0 Discharge Instructions Instructions: Muscle Spasm (ED) Additional Instructions: Ice or heat to the area of discomfort. Temporarily avoid massaging the area. Hold on use of your Flexeril while using prescribed muscle relaxant. Use prescribed a muscle relaxant for the last [address], drink alcohol or work while taking this medication, can cause impairment and sedation. Use prednisone for inflammation as discussed. You may temporarily hold off on your ibuprofen. Continue to use Tylenol for discomfort. Rest activities as tolerated. Observe for any signs of weakness of your arm, difficulty with range of motion of your neck or arm, alarming symptoms, fevers or ill feeling. Recheck with PCP for reevaluation in the next 3 to 5 days. Return for any worsening or concerns sooner if needed Medical Decision Making Is a 44-year-old patient who presents for complaints of pain behind the left shoulder blade. Patient reports muscle spasm. Patient reports she did try Flexeril at home without relief. Patient reports she is tried massaging the area without relief. Patient reports this is a typical location of muscle spasm she is experienced in the past however she typically experiences her spasm bilaterally. Patient reports she awoke with the pain this morning it is worse with range of motion specifically with flexion of the neck or rotation of the neck toward the left however patient denies neck pain. Patient does report occasional shooting pain into the left arm with specific range of motion's however denies any weakness, current numbness or tingling. Patient reports she does have chronic neck pain has known spinal stenosis has had MRIs of neck and back 2 years ago. Patient denies any new injury or trauma. On exam patient does have reproducible pain with palpation along the left shoulder blade. Patient does have reproducible pain with flexion of the neck. Patient has no focal weakness or sensation changes of the upper extremities bilaterally. Patient does not feel she needs additional imaging studies at this time. Has had no recent injury or trauma. Discussed plan of care with the patient, will trial a change in her muscle relaxant from Flexeril to Valium temporarily for 2 days and provide steroid for anti-inflammation as she has tried ibuprofen and Flexeril without significant relief. Patient offered physical therapy and declines as she has attempted physical therapy multiple times in the past without obvious relief of her pain in fact reports exacerbation of her pain. Patient declines PT referral. Encouraged conservative treatments, discussed use of medication safely and encouraged prompt follow-up with PCP if not improving. Patient reports her understanding. Patient has no concern of upper respiratory symptoms. Patient is clear breath sounds at this time. Patient denies any malaise or ill feeling at this time. Denies any chest pain. Reports she is breathing easily. I do not feel this patient likely has a cardiopulmonary etiology of her posterior left-sided pain. Nor do I feel this patient likely has any neurosurgical emergency at this time. the patient was stable and requested discharge. Prior to discharge, my usual and customary return precautions were reviewed with the patient - this included follow-up instructions and reasons to return to the Emergency Department if conditions worsens, does not improve as expected, or other new concerns arise. HPI General Date/Time Provider Initiated Documentation: 07/04/19 15:57. HPI Narrative: Is a 44-year-old woman who presents for complaints of left back pain near her scapula. Patient reports pain with specific positions can shoot into her arm to her fingertips. Patient has a history of spinal stenosis. Patient does report a history of back spasm in a similar area hello typically involves both sides. Patient does report that she awoke with pain this morning and went to bed without any difficulty. Patient reports she may have slept in an awkward position. Patient denies any fever, chills, nausea, vomiting. No ill feeling. Patient reports at rest she has no radiating symptoms into her arm specifically no numbness, tingling or weakness however when flexing her neck or rotating toward the left she gets a shooting pain behind her shoulder blade which can give her mild radiation toward her fingertip. Again patient denies any weakness of the arm associated. Patient denies any new injury or trauma. Again patient reports this is not atypical of muscle spasm she is experienced in the past however typically it is bilateral. Similar location. Related Data Home Medications Medication Instructions Recorded Confirmed quetiapine [Seroquel] 100 mg PO DAILY 07/31/16 07/04/19 acetaminophen [Tylenol] 650 mg PO Q6H PRN PRN #30 tab 04/13/18 07/04/19 pravastatin 20 mg tablet 20 mg PO DAILY #90 tab 03/13/19 07/04/19 lisinopril 10 mg tablet 10 mg PO DAILY #90 tab 06/25/19 07/04/19 omeprazole magnesium 20 mg 20 mg PO DAILY@0730 #90 tab 06/25/19 07/04/19 tablet,delayed release diazepam [Valium] 5 mg PO TID PRN #6 tab 07/04/19 prednisone 40 mg PO DAILY #6 tab 07/04/19 Previous Rx's Medication Instructions Recorded acetaminophen [Tylenol] 650 mg PO Q6H PRN PRN #30 tab 04/13/18 pravastatin 20 mg tablet 20 mg PO DAILY #90 tab 03/13/19 lisinopril 10 mg tablet 10 mg PO DAILY #90 tab 06/25/19 omeprazole magnesium 20 mg 20 mg PO DAILY@0730 #90 tab 06/25/19 tablet,delayed release diazepam [Valium] 5 mg PO TID PRN #6 tab 07/04/19 prednisone 40 mg PO DAILY #6 tab 07/04/19 Allergies Allergy/AdvReac Type Severity Reaction Status Date / Time trazodone Allergy Severe sleep walk Verified 07/04/19 15:52 buspirone [From BuSpar] AdvReac Severe night Verified 07/04/19 15:52 terros amitriptyline [From Elavil] AdvReac Mild walks Verified 07/04/19 15:52 like a drunk tramadol AdvReac Mild Nausea Verified 07/04/19 15:52 General Stated Complaint: Nk/Back Pain GERBER: 4 Review of Systems All systems reviewed & are unremarkable except as noted in HPI and below Constitutional Constitutional: Denies chills, Denies fatigue, Denies fever(s), Denies headache(s) and Denies malaise ENT Ears, Nose, Mouth, and Throat: Denies headache(s) and Reports neck pain Cardiovascular Cardiovascular: Denies chest pain, Denies chest pain at rest and Denies dyspnea on exertion Respiratory Respiratory: Denies cough, Denies dyspnea on exertion and Denies wheezing Gastrointestinal Gastrointestinal: Denies abdominal pain, Denies nausea and Denies vomiting Musculoskeletal Musculoskeletal: Reports back pain, Reports neck pain, Denies numbness and Denies tingling Integumentary/Breasts Skin/Breast: Denies rash Neurologic Neurologic: Denies headache(s), Denies numbness and Denies tingling Endocrine Endocrine: Denies fatigue Allergic/Immunologic Allergic/Immunologic: Denies wheezing [facility] Medical History Acute appendicitis with generalized peritonitis (Acute) Anxiety (Chronic) Arrhythmia (Acute) Asthma (Chronic) Chronic pain (Chronic) Depression (Chronic) Fibromyalgia (Acute) HTN (hypertension) (Chronic) Hypercholesterolemia (Chronic) Insomnia (Chronic) Lumbar spinal stenosis (Acute) Osteoarthritis of multiple joints (Acute) PTSD (post-traumatic stress disorder) (Acute) Tobacco use disorder (Acute) Social History Smoking/Tobacco Use Status: Current every day Tobacco Type: cigarettes Tobacco: How many years used: 28 Alcohol Intake: never Drug use: Never Substance use type: does not use Household members: spouse Housing: house Number of Children: 2 number of grandchildren: 2 Communication Needs: None Education Level: high school Details: some college Do you need help understanding health information?: Never Sexually active: Yes Do you think of yourself as: Decline to Provide Current gender identity: female What is your relationship status?: Panel score (0-1 are the most socially isolated patients): 1 What type of physical activity do you participate in: none Seatbelt use: always Drive intox or ride w/intox local combination truck driver: No Working smoke detector in home: Yes Fire extinguisher in home: Yes Carbon monox detector in home: Yes Firearms in home: Yes Firearms unloaded and locked: No Do you feel safe at home: Yes Do you feel safe in your relationship?: Yes Exam Narrative Exam Narrative: CONST: Patient in no acute distress. Well hydrated. Alert and alert. HENMT: Head nomocephalic, normal to inspection. Atraumatic. Hearing grossly normal. EYES: General normal appearance. Alignment normal. Eyelids normal. Conjunctiva normal. NECK: Normal visual inspection. FROM. Trachea midline. No Midline tenderness. Pain with flexion and rotation toward the left CHEST: Normal insepection of the chest. RESP: Normal respiratory effort. Speaking full sentences. No cough. No audible wheezing. No retractions. Clear breath sounds, equal bilaterally. CARDIO: No JVD. Regular rate and rhythm, no murmurs. MUSCULOSKELETAL: Normal Gait. FROM of all extremities. No weakness of upper extremities. Magnetic Tape Winder strength intact. Sensation intact and equal bilaterally. Full range of motion of left arm. Back: Mild tenderness over the thoracic spine with palpation. No step-offs. Moderate tenderness paraspinal on the left along the musculature of the scapula. Reproducible pain with palpation at this site. SKIN: Normal. Dry. No rashes. NEURO: Alert and awake. Speech clear. Course Vital Signs Vital signs: Vital Signs Temperature 36.7 C 07/04/19 15:50 Pulse 95 H 07/04/19 15:50 Respiratory Rate 18 07/04/19 15:50 Blood Pressure 132/87 07/04/19 15:50 Pulse Oximetry 99 07/04/19 15:50 Temperature 36.7 C 07/04/19 15:50 Temperature Source Skin 07/04/19 15:50 Pulse 95 H 07/04/19 15:50 Respiratory Rate 18 07/04/19 15:50 Respiratory Effort Non-Labored 07/04/19 15:53 Blood Pressure 132/87 07/04/19 15:50 Pulse Oximetry 99 07/04/19 15:50 Pain Level 8 07/04/19 15:50
== END 2019-07-04 16:33 | disposition home or self-care (01) ==
PROVIDERS: Emergency Provider Physician Assistant; PCP Family Medicine
DX: M62.830 Muscle spasm of back (principal); I10 Essential (primary) hypertension
CPT/HCPCS: 99283

== ENCOUNTER 2020-04-11 15:50 | Emergency (ER) | payer OTHER, SELFPAY ==
[2020-04-11 15:54] VITALS: BP 148/91; PULSE 111; RESP 20; TEMP 36.7; O2SAT 97
--- NOTE | 2020-04-11 16:03 | ED.GENADUL_ITS ---
Discharge Plan Disposition Patient Disposition: HOME Condition: Good Discharge Details Clinical Impression: Back pain Primary Care Provider: Hema Stafford ED Provider: Olu Garduno Home Meds and New Rx's Prescriptions: New cyclobenzaprine 10 mg tablet 10 mg PO TID Qty: 14 RF: 0 prednisone 50 MG tablet 50 mg PO DAILY Qty: 5 RF: 0 lidocaine [Lidoderm] 1 PATCH patch 1 patch Topical Q24H Qty: 4 RF: 0 Continued pravastatin 20 mg tablet 20 mg PO DAILY Qty: 90 RF: 3 aspirin [Adult Aspirin Regimen] 81 mg tablet,delayed release (DR/EC) 81 mg PO DAILY RF: 0 lisinopril [Prinivil] 10 mg tablet 10 mg PO DAILY Qty: 90 RF: 3 Prilosec OTC 20 mg tablet,delayed release (DR/EC) 20 mg PO DAILY@0730 Qty: 90 RF: 3 cyclobenzaprine 5 mg tablet 5 mg PO TID PRN (Reason: muscle spasm) Qty: 30 RF: 2 quetiapine [Seroquel] 100 MG tablet 100 mg PO DAILY RF: 0 acetaminophen [Tylenol] 325 mg Tablet 650 mg PO Q6H PRN PRNQty: 30 RF: 0 Discharge Instructions Instructions: Back Pain (ED) Additional Instructions: At this time your signs and symptoms are clinically consistent with a back sprain. This can cause significant pain and take a fair bit of time to heal. I expect 1 to 2 months for potential resolution. In the meantime do not lift anything greater than 5 pounds for the next 2 weeks. Avoid any significant vigorous physical activity. Perform easy gentle regular activities at home without any significant bending or lifting. Please take the steroids as directed. You have been given a prescription for Lidoderm patch. If your insurance does not cover this you can get [id number] Lidoderm patches at 4% which are almost just as effective. Please take the Flexeril as directed but do not take it when driving or operating any vehicles or heavy machinery, swimming, taking long baths, or operating firearms. Please use a heating pad as often as possible on your back. Perform daily gentle stretches on your back. Please continue to take the Tylenol and Motrin. You can take 1000 mg of Tylenol every 6 hours and 600 mg of ibuprofen every 6 hours. If you notice any worsening of your symptoms, or any new symptoms such as vomiting, diarrhea, fever, chills, shortness of breath, chest pain, numbness or tingling in your groin or legs, weakness in your legs, loss of control for your bowels or bladder, or fainting , please return immediately to the emergency department for reevaluation. Please follow up with your primary care provider as soon as possible for reassessment and reevaluation. As always, it was a pleasure participating in your medical care today. Referrals: Hema Stafford DO [Primary Care Provider] - Medical Decision Making 45-year-old female with a past medical history of depression, left- sided sciatica, fibromyalgia, chronic lumbar spinal stenosis and back pain, presents today for evaluation of left-sided back pain. Patient states that over the last 3 days she has been packing up her house to move to [place]. Today she was lifting 1 of her couches and shortly thereafter she had a notable spasm on the left side of her lower back. She denies any midline pain or right-sided pain. She denies any urinary complaints frequency dysuria or hematuria. She denies any new numbness or tingling in her legs. She denies any chest pain, chest tightness, shortness of breath, or pleuritic chest pain. She does have Flexeril refills, but has not filled these. She states the pains feel similar to her previous strains back episodes in the past. She denies any tearing or ripping sensation in her chest. Patient denies any saddle anesthesia, numbness or tingling in the groin, change in sensation when wiping. Patient denies any change in sensation during sexual intercourse, bowel or bladder incontinence, leakage, or retention. Patient denies any weakness in the lower extremities, atypical falls or imbalance. She denies any IV or illicit drug use. Physical exam demonstrates notable left-sided paraspinal spasm and tenderness over T10- L2, no midline tenderness. No concerning red flags otherwise. Signs and symptoms inconsistent with dissection, kidney stone, or cauda equina syndrome. We will get a screening urinalysis. We will treat with Valium IM, steroids, and Tylenol. The patient is already taken ibuprofen within the last 2 hours. We will monitor closely and reassess. 4:55 PM Urinalysis is negative for any evidence of hematuria or infection. Signs and symptoms clinically consistent with musculoskeletal back strain. Inconsistent with cauda equina syndrome, or other acute life-threatening spinal abnormality. This time patient is feeling better and would like to go home. Patient will be discharged with steroids, Flexeril, Lidoderm patch, and recommendation for Tylenol Motrin. I have extensively reviewed the treatment plan and discharge instructions with the patient. I have addressed all patient concerns at this time. The patient was made aware of what symptoms to monitor for that would warrant a return to the emergency department. Discussed the plan with the patient, they demonstrate verbal understanding and agreement with our assessment and plan at this time. HPI General Date/Time Provider Initiated Documentation: 04/11/20 15:55 . HPI Narrative: 45-year-old female with a past medical history of depression, left- sided sciatica, fibromyalgia, chronic lumbar spinal stenosis and back pain, presents today for evaluation of left-sided back pain. Patient states that over the last 3 days she has been packing up her house to move to [place]. Today she was lifting 1 of her couches and shortly thereafter she had a notable spasm on the left side of her lower back. She denies any midline pain or right-sided pain. She denies any urinary complaints frequency dysuria or hematuria. She denies any new numbness or tingling in her legs. She denies any chest pain, chest tightness, shortness of breath, or pleuritic chest pain. She does have Flexeril refills, but has not filled these. She states the pains feel similar to her previous strains back episodes in the past. She denies any tearing or ripping sensation in her chest. Patient denies any saddle anesthesia, numbness or tingling in the groin, change in sensation when wiping. Patient denies any change in sensation during sexual intercourse, bowel or bladder incontinence, leakage, or retention. Patient denies any weakness in the lower extremities, atypical falls or imbalance. She denies any IV or illicit drug use. Related Data Home Medications Medication Instructions Recorded Confirmed quetiapine [Seroquel] 100 mg PO DAILY 07/31/16 04/11/20 acetaminophen [Tylenol] 650 mg PO Q6H PRN PRN #30 tab 04/13/18 04/11/20 pravastatin 20 mg tablet 20 mg PO DAILY #90 tab 03/13/19 04/11/20 lisinopril 10 mg tablet 10 mg PO DAILY #90 tab 06/25/19 04/11/20 omeprazole magnesium 20 mg 20 mg PO DAILY@0730 #90 tab 06/25/19 04/11/20 tablet,delayed release aspirin 81 mg tablet,delayed 81 mg PO DAILY 09/18/19 release cyclobenzaprine 5 mg tablet 5 mg PO TID PRN #30 tab 11/26/19 04/11/20 cyclobenzaprine 10 mg PO TID #14 tab 04/11/20 lidocaine [Lidoderm] 1 patch TOPICAL Q24H #4 patch 04/11/20 prednisone 50 mg PO DAILY #5 tab 04/11/20 Previous Rx's Medication Instructions Recorded acetaminophen [Tylenol] 650 mg PO Q6H PRN PRN #30 tab 04/13/18 pravastatin 20 mg tablet 20 mg PO DAILY #90 tab 03/13/19 lisinopril 10 mg tablet 10 mg PO DAILY #90 tab 06/25/19 omeprazole magnesium 20 mg 20 mg PO DAILY@0730 #90 tab 06/25/19 tablet,delayed release cyclobenzaprine 5 mg tablet 5 mg PO TID PRN #30 tab 11/26/19 cyclobenzaprine 10 mg PO TID #14 tab 04/11/20 lidocaine [Lidoderm] 1 patch TOPICAL Q24H #4 patch 04/11/20 prednisone 50 mg PO DAILY #5 tab 04/11/20 Allergies Allergy/AdvReac Type Severity Reaction Status Date / Time trazodone Allergy Severe sleep walk Verified 09/18/19 14:47 buspirone [From BuSpar] AdvReac Severe night Verified 09/18/19 14:47 terros amitriptyline [From Elavil] AdvReac Mild walks Verified 09/18/19 14:47 like a drunk tramadol AdvReac Mild Nausea Verified 09/18/19 14:47 General Stated Complaint: Nk/Back Pain GERBER: 4 Review of Systems All systems reviewed & are unremarkable except as noted in HPI and below PFSH Medical History (Updated 04/11/20 @ 16:52 by Olu Garduno DO) Acute appendicitis with generalized peritonitis Anxiety Arrhythmia Asthma Chronic pain Depression Fibromyalgia HTN (hypertension) Hypercholesterolemia Insomnia Lumbar spinal stenosis Osteoarthritis of multiple joints PTSD (post-traumatic stress disorder) Tobacco use disorder Surgical History History of removal of cyst Ear and Nose History of tonsillectomy and adenoidectomy Status post laparoscopic appendectomy Tubal ligation status Family History Mother Hypertension Diabetes Heart disease Colon cancer Stroke Maternal Grandmother Brain cancer Colon cancer Maternal Grandfather Heart disease Social History Smoking/Tobacco Use Status: Current every day Tobacco Type: cigarettes Tobacco: How many years used: 28 Alcohol Intake: never Drug use: Never Substance use type: does not use Household members: spouse Housing: house Number of Children: 2 number of grandchildren: 2 Communication Needs: None Education Level: high school Details: some college Do you need help understanding health information?: Never Sexually active: Yes Do you think of yourself as: Decline to Provide Current gender identity: female What is your relationship status?: Panel score (0-1 are the most socially isolated patients): 1 What type of physical activity do you participate in: none Seatbelt use: always Drive intox or ride w/intox sweeper driver: No Working smoke detector in home: Yes Fire extinguisher in home: Yes Carbon monox detector in home: Yes Firearms in home: Yes Firearms unloaded and locked: No Do you feel safe at home: Yes Do you feel safe in your relationship?: Yes Exam Narrative Exam Narrative: 1.Const: Well-nourished, Well-developed, appearing stated age 2.Eyes: PERRL, no conjunctival injection, and symmetrical lids. 3.ENT: Atraumatic external nose and ears. Moist MM. Neck: Symmetric, trachea midline, No thyromegaly. 4.CVS: +S1/S2, No murmurs or gallops. Peripheral pulses 2+ and equal in all extremities. Brisk capillary refill in all extremities. 5.RESP: Unlabored respiratory effort. Clear to auscultation bilaterally. No wheezes rales or rhonchi 6.GI: Soft, Nontender/Nondistended, No hepatosplenomegaly. No guarding or rebound. 7.MSK: Normocephalic/Atraumatic, Extremities w/o deformity or ttp No cyanosis or clubbing, Normal movement of all extremities. No midline tenderness to palpa tion over the CTLS spine. Notable left-sided paraspinal tenderness with notable palpable spasm around T10-L2. Normal ROM in flexion, extension, side bend, and rotation. Patient has +5 out of 5 strength in the lower extremities in dorsiflexion and plantarflexion, knee flexion and extension, hip flexion and extension. Normal strength for dorsiflexion and plantar flexion of the great toe bilaterally. There is +2 over 2 dorsalis pedis pulses bilaterally. There is normal sensation to the skin with light touch at the foot, knee, and hip. Normal saddle sensation. Good sensation over the deep sural nerve area bilaterally. Rectal exam demonstrates good rectal tone and perirectal sensation. Reflexes are +2 over 4 in the patellar reflex bilaterally. +5 out of 5 strength in the medial, ulnar, radial nerve distribution bilaterally in the hands as well as intact light touch sensation to these dermatomes on the hands 8.Skin: Warm, Dry. No rashes or lesions. 9.Neuro: water filterer II-XII grossly intact. Sensation grossly intact, no focal neurologic deficits. 10.Psych: (AAO) x3. Appropriate mood and affect Course Vital Signs Vital signs: Vital Signs Temperature 36.7 C 04/11/20 15:54 Pulse 111 H 04/11/20 15:54 Respiratory Rate 04/11/20 15:54 Blood Pressure 148/91 H 04/11/20 15:54 Pulse Oximetry 97 04/11/20 15:54 Temperature 36.7 C 04/11/20 15:54 Temperature Source Skin 04/11/20 15:54 Pulse 111 H 04/11/20 15:54 Respiratory Rate 04/11/20 15:54 Blood Pressure 148/91 H 04/11/20 15:54 Blood Pressure Position Sitting 04/11/20 15:54 Pulse Oximetry 97 04/11/20 15:54 Oxygen Delivery Method Room Air 04/11/20 15:54 Oxygen Flow Rate 0 04/11/20 15:54 Pain Level 7 04/11/20 15:54
[2020-04-11] MEDS: diazePAM 10 MG/2 ML SYR IM (16:15)
[2020-04-11] MEDS: Acetaminophen 500 MG TAB 1000 MG PO (16:16)
[2020-04-11] MEDS: predniSONE 20 MG TAB 60 MG PO (16:16)
[2020-04-11] MEDS: Lidocaine 5% Patch 1 PATCH TP (16:20)
[2020-04-11 16:45] LABS: Bilirubin Negative (Negative); Blood Negative (Negative); Clarity Clear (Clear); Glucose Negative (Negative); Ketones Negative (Negative); Leukocyte Esterase Negative (Negative); Nitrite Negative (Negative); Specific Gravity >= 1.030 (1.005-1.025); Urobilinogen 0.2 EU/dL (Up TO 0.2); pH 5.5 (5-8)
[2020-04-11 16:53] VITALS: BP 143/78; PULSE 105; RESP 24; TEMP 36.5; O2SAT 96
== END 2020-04-11 16:59 | disposition home or self-care (01) ==
PROVIDERS: Emergency Provider Student in an Organized Health Care Education/Training Program; PCP Family Medicine
DX: S33.5XXA Sprain of ligaments of lumbar spine, initial encounter (principal); X50.0XXA Overexertion from strenuous movement or load, initial encounter; Y93.E6 Activity, residential relocation; M62.830 Muscle spasm of back; I10 Essential (primary) hypertension
CPT/HCPCS: 96372; 99284; 81003; J3360; J7512